=== PATIENT | male | born 1955 | race African-American/Black ===

== ENCOUNTER 2020-09-26 10:28 | Outpatient (REF) | payer MEDICARE, MEDICAID, SELFPAY ==
--- NOTE | 2020-09-26 10:40 | XR_ITS ---
EXAMINATION: XR FOOT, RIGHT CLINICAL INFORMATION: Pain over mid arch right foot COMPARISON: None TECHNIQUE: Right foot is imaged in 3 views, nonweightbearing. FINDINGS: There is no acute or healing fracture, dislocation, or destructive process. Bony mineralization appears normal. There is decreased arch/pes planus. The retrocalcaneal recess is preserved. No significant calcaneal spurring. The subtalar joint is not well visualized. There is a prominent hallux valgus of approximately 44 degrees and medial osseous bunion first metatarsal head. XR/XR foot RT min 3V IMPRESSION: Pes planus. Prominent hallux valgus and osseous bunion.
== END 2020-09-26 10:29 | disposition home or self-care (01) ==
LOC: HO.XRAY 10:28
PROVIDERS: PCP Family Medicine; Visit Provider Family Medicine
DX: M79.671 Pain in right foot (principal)
CPT/HCPCS: 73630

== ENCOUNTER 2021-07-05 10:54 | Emergency (ER) | payer MEDICARE, OTHER, SELFPAY ==
[2021-07-05 10:58] VITALS: BP 140/94; PULSE 73; RESP 18; TEMP 36.9; O2SAT 97; BMI 27.1
--- NOTE | 2021-07-05 12:38 | ED.NECK ---
HPI - Neck Pain/Injury General Chief Complaint: Extremity Problem Stated Complaint: rt shoulder & neck pain Time Seen by Provider: 07/05/21 12:28 Source: patient and old records reviewed Mode of arrival: ambulatory Limitations: no limitations History of Present Illness HPI Narrative: Patient presents with 2 weeks worth of right-sided trapezius and anterior shoulder pain. No injuries or precipitating factors that he is aware of. He denies ever having pain or issues in this area before. 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 He has been taking some [id number] medications which help a little but have not made it go away. He has a PCP and takes medication for hypertension and cholesterol. No significant history of arthritis for the other musculoskeletal issues Severity: moderate Related Data Previous Rx's Medication Instructions Recorded cyclobenzaprine 10 mg tablet 10 mg PO TID #20 tab 07/05/21 ibuprofen 800 mg tablet 800 mg PO TID #30 tab 07/05/21 Allergies Allergy/AdvReac Type Severity Reaction Status Date / Time No Known Allergies Allergy Unverified 07/14/20 16:56 getachew inhibitors Allergy Unknown cough Uncoded 04/04/18 00:00 Review of Systems Constitutional: Constitutional: Denies body ache(s) and Denies fever(s) Cardiovascular: Cardiovascular: Denies chest pain and Denies dyspnea Respiratory: Respiratory: Denies cough and Denies dyspnea Gastrointestinal: Comments: No abdominal pain Musculoskeletal: Comments: Slightly decreased range of motion right shoulder Neurologic: Comments: No weakness numbness or paresthesias [facility] Past Medical History [facility] Narrative: Noncontributory Medical History (Updated 07/05/21 @ 12:45 by Fareed Greenwood MD) HIV disease Hypertension Stroke Social History Social History Advance Directives: Yes Advance Directives Information Provided: Yes Advance Directives on File: No Physical Exam Vital Signs: Vital Signs: Last Vital Signs Temp 98.4 F 07/05/21 10:58 Pulse 73 07/05/21 10:58 Resp 18 07/05/21 10:58 BP 140/94 H 07/05/21 10:58 Pulse Ox 97 07/05/21 10:58 Body Mass Index 27.1 Const: General: cooperative, healthy appearing, comfortable, no acute distress and well developed Neck: Other: Right-sided trapezius spasm and mild tenderness to palpation without significant deformity. No midline C-spine tenderness. Chest: Other: Clear and equal bilaterally Cardio: Other: Regular rate and rhythm without murmurs rubs or gallops GI: Other: Abdomen nontender Back/Spine/Pelvis: Other: No T-spine tenderness Skin: Other: No rash or skin changes in the area of pain Neuro: Other: [employer] equal bilaterally. No objective or subjective weakness. Ambulates without difficulty Extrem: Other: Mild tenderness to the anterior medial shoulder. Mild crepitus with range of motion. No significant pain with passive range of motion. No tenderness over biceps tendon Course Course Course Narrative: Musculoskeletal trapezius pain without evidence of significant abnormality or radiculopathy. Will treat with ibuprofen and Flexeril. Follow up with PCP for physical therapy referral Discharge Plan Discharge Clinical Impression: Trapezius muscle spasm Patient Disposition: Home, Self-Care Instructions: Muscle Spasm (ED) Prescriptions: New ibuprofen 800 mg tablet 800 mg PO TID Qty: 30 RF: 0 cyclobenzaprine 10 mg tablet 10 mg PO TID Qty: 20 RF: 0 Referrals: Italia Lynn MD [Physician] - 2 days
== END 2021-07-05 13:01 | disposition home or self-care (01) ==
PROVIDERS: Emergency Provider Emergency Medicine; PCP Family Medicine
DX: M62.838 Other muscle spasm (principal); Z79.899 Other long term (current) drug therapy
CPT/HCPCS: 99283

== ENCOUNTER 2022-01-25 16:26 | Outpatient (REF) | payer MEDICARE, OTHER, SELFPAY ==
--- NOTE | ~2022-01-25 | XR_ITS ---
EXAMINATION: XR SHOULDER, RIGHT CLINICAL INFORMATION: Pain right shoulder. COMPARISON: X-rays of the right shoulder January 2009 . TECHNIQUE: AP external rotation, Grashey, scapular Y, and axillary views of the right shoulder. FINDINGS: There are small marginal osteophytes along the inferior aspect of the humeral head. The acromioclavicular joint is normal. The surrounding bone and soft tissues are unremarkable XR/XR shoulder RT min 2V IMPRESSION: Mild arthrosis of the glenohumeral joint.
== END 2022-01-25 16:27 | disposition home or self-care (01) ==
LOC: HO.XRAY 16:26
PROVIDERS: Absent Provider Family Medicine; PCP Family Medicine; Visit Provider Internal Medicine
DX: M25.511 Pain in right shoulder (principal)
CPT/HCPCS: 73030

== ENCOUNTER 2022-11-16 10:06 | Day surgery (SDC) | payer MEDICARE, OTHER, SELFPAY ==
[2022-11-16 10:19] VITALS: BMI 27.8
[2022-11-16] MEDS: Lactated Ringers 1,000 ML 100 ML IVCONT (10:29)
--- NOTE | 2022-11-16 10:45 | P.CONAN_ITS ---
[facility] Past Medical History Medical History HIV disease Hyperlipidemia Hypertension Pericarditis Stroke Family History Family history of problems with anesthesia: No Surgical History Surgical History History of repair of left hip joint History of surgical removal of ganglion cyst History of Problems with Anesthesia: No Social History Social History Patient Tobacco Use Status: Former Tobacco user Are you DNR?: No Advance Directives: No Advance Directives Information Provided: Yes Nutrition Risks: No Nutritional Risk Meds Allergies Allergy/AdvReac Type Severity Reaction Status Date / Time getachew inhibitors Allergy Unknown cough Uncoded 11/16/22 10:21 Active Medications: Current Medications Lactated Ringer's (Lr) 1,000 mls @ 100 mls/hr IVCONT .Q10H FLOR Last Admin: 11/16/22 10:29 Dose: 100 mls/hr Sodium Biphosphate/Sodium Phosphate (Sodium Phosphate,Bartholomew-Dibasic 133 Ml Enema) 133 ml HI ONCE PRN PRN Reason: Poor Colonoscopy Prep Results Home Medications Medication Instructions Recorded Confirmed Last Taken Type acetaminophen 650 mg 2 tab PO Q8H PRN Pain 11/15/22 11/16/22 Unknown History tablet,extended release aspirin 325 mg tablet,delayed 1 tab PO DAILY 11/15/22 11/16/22 Unknown History release atorvastatin 20 mg tablet 1 tab PO DAILY 11/15/22 11/16/22 Unknown History bictegravir 50 mg-emtricitabine 1 tab PO BEDTIME 11/15/22 11/16/22 Unknown History 200 mg-tenofovir alafenam 25 mg tablet (Biktarvy) chlorthalidone 25 mg tablet 1 tab PO DAILY 11/15/22 11/16/22 Unknown History hydrochlorothiazide 25 mg tablet 1 tab PO DAILY 11/15/22 11/16/22 Unknown History losartan 50 mg tablet 1 tab PO DAILY 11/15/22 11/16/22 Unknown History Exam Exam Date and Time: November 16, 2022 1045 Height,Weight and Vital Signs: Height 6 ft Weight 92.986 kg Airway Mallampati Class: II TM Dist: >3cm Partial: Upper Loose/Missing/Broken Teeth: No Heart: rrrr Lungs: cta Assessment and Plan Final Anesthetic Review Family History of Problems with Anesthesia: No History of Problems with Anesthesia: No NPO: Yes ASA Class: II Final Preanesthetic Review: No Changes in Pt Med Stat, Meds/Allgs Chart Reviewed, Consent Obtained/Reviewed and Anes Risks/Benef Reviewed Patient Risk: Low Procedure Risk: Low Anesthetic Plan Anesthetic Plan: MAC: and Agree w/ Assess. and Plan Disposition: Standard PACU
[2022-11-16 11:06] VITALS: BP 134/80; PULSE 85; RESP 18; TEMP 36.7; O2SAT 99
[2022-11-16 12:30] VITALS: BP 119/77; PULSE 80; RESP 18; TEMP 36.7; O2SAT 97
--- NOTE | 2022-11-16 12:30 | PM.OP ---
Brief Operative Note Date of Service: 11/16/22 Pre-op diagnosis: Screening Post-op diagnosis: other (Colon polyps) Procedure: Colonoscopy to the cecum with bx/removal of polyps Surgeon: Ignacio Iglesias Anesthesia: MAC Was an Septic Tank Installer used for this Procedure?: No Estimated blood loss (mL): 2.0 Pathology: other (A. Colon polyp at 60cm B. Colon polyp at 40cm ) Condition: stable Disposition: PACU
[2022-11-16 12:46] VITALS: BP 121/84; PULSE 85; RESP 18; TEMP 36.1; O2SAT 98
--- NOTE | 2022-11-17 00:36 | OP_ITS ---
SURGEON: Ignacio Iglesias MD INDICATIONS: The patient presents for evaluation of colon cancer screening. Full consent has been obtained from him for this, including risks of bleeding and perforation. PREOPERATIVE DIAGNOSIS: Colon cancer screening. POSTOPERATIVE DIAGNOSIS: PROCEDURE PERFORMED: Colonoscopy to the cecum with biopsy and removal of polyps. ESTIMATED BLOOD LOSS: COMPLICATIONS: ANESTHESIA: Monitored anesthesia care. ASSISTANTS: SPECIMENS: POSTOPERATIVE DIAGNOSES: Colon cancer screening, small colon polyps, diverticulosis, internal hemorrhoids. DESCRIPTION OF PROCEDURE: The patient was placed in the left lateral decubitus position. The digital rectal exam revealed no abnormalities. The Olympus video pediatric colonoscope was entered into the rectum and advanced easily to the cecum. Once in the cecum, I did identify normal-appearing cecal pouch with appendiceal orifice and a normal appearing ileocecal valve. The entire cecum and ileocecal valve appeared normal. There was transillumination of light deep in the right lower quadrant. Scope was slowly withdrawn, assessing all mucosal surfaces carefully. Preparation was excellent. At 60 cm and at 40 cm were flat less than 5 mm polyps, which appeared to be grossly adenomatous. These were both biopsied and completely removed with a cold biopsy forceps. I did not visualize any other polyps, colitis, or angiodysplasia. There was a mild amount of sigmoid diverticulosis. In the rectum, the scope was retroflexed visualizing internal hemorrhoids, but no other pathology. The rectal mucosa appeared normal. Scope was straightened and withdrawn from the patient. He tolerated the procedure well and was returned to recovery area in stable condition. IMPRESSION: 1. Small colon polyps. 2. Diverticulosis. 3. Internal hemorrhoids. PLAN: The results of the biopsy will be checked. If these are tubular adenoma, then recommend a followup colonoscopy in 5 years. If they are both hyperplastic, then he would not need any further screening colonoscopies as he will be just about 78, 10 years from now, when that will be due. He will see me on a p.r.n. basis. He was advised to resume his aspirin in 48 hours as his last dose was 48 hours ago. MD LOC Ly[place]/ALEXIS / [id number] MTDNidia
== END 2022-11-16 13:30 | disposition home or self-care (01) ==
PROVIDERS: PCP Family Medicine; Visit Provider Internal Medicine
PROC: 0DJD8ZZ Inspection of Lower Intestinal Tract, Via Natural or Artificial Opening Endoscopic (ICD-10-PCS; CPT 45378; principal; 2022-11-16 11:40)
DX: Z12.11 Encounter for screening for malignant neoplasm of colon (principal); D12.4 Benign neoplasm of descending colon; D12.5 Benign neoplasm of sigmoid colon; K57.30 Diverticulosis of large intestine without perforation or abscess without bleeding; K64.8 Other hemorrhoids; B20 Human immunodeficiency virus [HIV] disease; E78.5 Hyperlipidemia, unspecified; I69.319 Unspecified symptoms and signs involving cognitive functions following cerebral infarction; I10 Essential (primary) hypertension; Z79.82 Long term (current) use of aspirin; Z79.899 Other long term (current) drug therapy; Z88.8 Allergy status to other drugs, medicaments and biological substances; Z87.891 Personal history of nicotine dependence
CPT/HCPCS: 45380; 88305

== ENCOUNTER 2023-02-05 13:47 | Emergency (ER) | payer MEDICARE, OTHER, SELFPAY ==
--- NOTE | ~2023-02-05 | XR_ITS ---
EXAMINATION: XR KNEE, RIGHT CLINICAL INFORMATION: Pain and swelling COMPARISON: None available. TECHNIQUE: Four views of the right knee. FINDINGS: There is mild reduction in medial and patellar femoral compartment joint space without bony erosive changes. There is minimal spurring along the medial compartment and superior patellar. There is mild suprapatellar joint effusion. No visible acute fracture, dislocation or loose body seen. The soft tissues are normal. XR/XR knee RT 4V IMPRESSION: Mild degenerative changes medial and patellofemoral compartment. There is mild suprapatellar joint effusion.
--- NOTE | 2023-02-05 13:53 | ED.LOWEXIN ---
HPI - Extremity Injury (Lower) General Chief Complaint: Extremity Problem <BUSHRA Mann - Last Filed: 02/05/23 13:56> Stated Complaint: R knee pain <BUSHRA Mann - Last Filed: 02/05/23 13:56> Time Seen by Provider: 02/05/23 14:09 <BUSHRA Mann - Last Filed: 02/05/23 13:56> History of Present Illness HPI Narrative: patient complains of right knee pain and swelling after carrying something up stairs and feeling a pop 3 days ago, since then he has had pain that keeps him up at night and some swelling, he did not fall he has no other injury or complaint, denies any redness or fever <BUSHRA Vazquez - Last Filed: 02/05/23 15:14> Related Data Home Medications: Home Medications Medication Instructions Recorded Confirmed acetaminophen 650 mg 2 tab PO Q8H PRN Pain 11/15/22 11/16/22 tablet,extended release aspirin 325 mg tablet,delayed 1 tab PO DAILY 11/15/22 11/16/22 release atorvastatin 20 mg tablet 1 tab PO DAILY 11/15/22 11/16/22 bictegravir 50 mg-emtricitabine 1 tab PO BEDTIME 11/15/22 11/16/22 200 mg-tenofovir alafenam 25 mg tablet (Biktarvy) chlorthalidone 25 mg tablet 1 tab PO DAILY 11/15/22 11/16/22 hydrochlorothiazide 25 mg tablet 1 tab PO DAILY 11/15/22 11/16/22 losartan 50 mg tablet 1 tab PO DAILY 11/15/22 11/16/22 Previous Rx's Medication Instructions Recorded acetaminophen 500 mg tablet 1,000 mg PO QID PRN pain #30 tabs 02/05/23 naproxen 500 mg tablet (Naprosyn) 500 mg PO BID PRN pain #10 tabs 02/05/23 oxycodone 5 mg tablet 5 mg PO Q6H PRN pain #10 tabs 02/05/23 <BUSHRA Mann - Last Filed: 02/05/23 13:56> Allergies/Adverse Reactions: Allergies Allergy/AdvReac Type Severity Reaction Status Date / Time getachew inhibitors Allergy Unknown cough Uncoded 11/16/22 10:21 <BUSHRA Mann - Last Filed: 02/05/23 13:56> [facility] Past Medical History Source: nursing notes reviewed <BUSHRA Vazquez - Last Filed: 02/05/23 15:14> Medical History: Medical History (Updated 02/05/23 @ 15:07 by BUSHRA Vazquez) HIV disease Hyperlipidemia Hypertension Pericarditis Stroke <BUSHRA Mann - Last Filed: 02/05/23 13:56> Surgical History: Surgical History History of repair of left hip joint History of surgical removal of ganglion cyst <BUSHRA Mann - Last Filed: 02/05/23 13:56> Social History Social History: Social History Patient Tobacco Use Status: Former Tobacco user Advance Directives: No Advance Directives Information Provided: Yes <BUSHRA Mann - Last Filed: 02/05/23 13:56> Physical Exam Vital Signs: Vital Signs: Last Vital Signs Temp 98.1 F 02/05/23 13:54 Pulse 65 02/05/23 13:54 Resp 18 02/05/23 13:54 BP 139/95 H 02/05/23 13:54 Pulse Ox 98 02/05/23 13:54 O2 Del Method Room Air 02/05/23 13:54 BMI result Body Mass Index 27.8 <BUSHRA Mann - Last Filed: 02/05/23 13:56> Vital Signs: Last Vital Signs Temp 98.1 F 02/05/23 13:54 Pulse 65 02/05/23 13:54 Resp 18 02/05/23 13:54 BP 139/95 H 02/05/23 13:54 Pulse Ox 98 02/05/23 13:54 O2 Del Method Room Air 02/05/23 13:54 BMI result Body Mass Index 27.8 <BUSHRA Vazquez - Last Filed: 02/05/23 15:14> general appearance is no distress Head is normocephalic atraumatic Neck is supple Respiratory no distress The back full range of motion Extremities the right knee has some mild suprapatellar swelling, there is diffuse mild tenderness, he can extend 180 flex to about 90, can do straight leg raise, no ligamentous laxity, no redness no warmth Other extremities normal <BUSHRA Vazquez - Last Filed: 02/05/23 15:14> Course Course Course Narrative: RME--67yo M w/PMHx HIV, HTN, HLD, CVA, Pericarditis, c/o right knee pain x2 days s/p carrying things up the stairs. denies twisting injury/trauma or fall +right knee with mild swelling, +ttp >medial aspect. NV intact distally XR ordered <BUSHRA Mann Last Filed: 02/05/23 13:56> RME--67yo M w/PMHx HIV, HTN, HLD, CVA, Pericarditis, c/o right knee pain x2 days s/p carrying things up the stairs. denies twisting injury/trauma or fall +right knee with mild swelling, +ttp >medial aspect. NV intact distally XR ordered X-ray show degenerative changes in medial and patellofemoral compartments, there is a mild suprapatellar joint effusion On exam there was no sign of septic joint there is no redness no warmth, it extends to 180 patient can bear weight Patient with painful left knee with recent injury as well as osteoarthritis is referred to the orthopedist and prescribed analgesics <BUSHRA Vazquez Last Filed: 02/05/23 15:14> Discharge Plan Discharge Clinical Impression: Osteoarthritis of right knee <BUSHRA Mann Last Filed: 02/05/23 13:56> Patient Disposition: Home, Self-Care <BUSHRA Mann Last Filed: 02/05/23 13:56> Additional Instructions: x-ray showed some arthritis in the knee which is the likely cause of the knee pain flare up Follow with orthopedist Return any time any worse condition or any concerns <BUSHRA Mann Last Filed: 02/05/23 13:56> Prescriptions: New acetaminophen 500 mg tablet 1,000 mg PO QID PRN (Reason: pain) Qty: 30 0RF oxycodone 5 mg tablet 5 mg PO Q6H PRN (Reason: pain) Qty: 10 0RF Rx Instructions: Partial Fill upon patient request. naproxen [Naprosyn] 500 mg tablet 500 mg PO BID PRN (Reason: pain) Qty: 10 0RF No Action losartan 50 mg tablet 1 tab PO DAILY atorvastatin 20 mg tablet 1 tab PO DAILY chlorthalidone 25 mg tablet 1 tab PO DAILY acetaminophen 650 mg tablet extended release 2 tab PO Q8H PRN (Reason: Pain) aspirin 325 mg tablet,delayed release (DR/EC) 1 tab PO DAILY hydrochlorothiazide 25 mg tablet 1 tab PO DAILY Biktarvy 50-200-25 mg tablet 1 tab PO BEDTIME <BUSHRA Mann - Last Filed: 02/05/23 13:56> Referrals: Ildefonso Benjamin MD [Physician] - ( right knee osteoarthritis) <BUSHRA Mann - Last Filed: 02/05/23 13:56>
[2023-02-05 13:54] VITALS: BP 139/95; PULSE 65; RESP 18; TEMP 36.7; O2SAT 98; BMI 27.8
== END 2023-02-05 15:16 | disposition home or self-care (01) ==
PROVIDERS: Emergency Provider Emergency Medicine; PCP Family Medicine
DX: M17.11 Unilateral primary osteoarthritis, right knee (principal); I10 Essential (primary) hypertension; Z86.73 Personal history of transient ischemic attack (TIA), and cerebral infarction without residual deficits
CPT/HCPCS: 73564; 99282; 99283

== ENCOUNTER 2023-07-26 02:42 | Inpatient (IN) | payer MEDICARE, OTHER, SELFPAY ==
[2023-07-26] VITALS (8 sets, daily range): BP systolic 115–160; BP diastolic 81–95; PULSE 65–80; RESP 14–18; TEMP 36.6–37; O2SAT 96–100; BMI 29.1
--- NOTE | ~2023-07-26 | MR_ITS ---
EXAMINATION: MR BRAIN WITHOUT CONTRAST CLINICAL INFORMATION: Rule out CVA. Right hand numbness. COMPARISON: Head CT 07/26/2023. TECHNIQUE: Multiplanar, multisequence imaging of the brain was performed without intravenous contrast. FINDINGS: Allowing for motion artifact no definite restricted diffusion is seen to suggest acute infarction. Nonspecific foci of T2/FLAIR hyperintensity are seen within the bilateral cerebral white matter which has progressed compared with 2013 there is a mild degree of brain parenchymal volume loss. No hydrocephalus is seen. The major arterial flow voids appear preserved at the skull base. There is paranasal sinus mucosal thickening with some aerated secretions noted in the maxillary sinuses. MR/MR head/brain wo con IMPRESSION: Motion degraded exam. No definite acute intracranial abnormality identified. Nonspecific foci of T2/FLAIR hyperintensity seen in the cerebral white matter which has progressed compared with 2013.
--- NOTE | ~2023-07-26 | CT_ITS ---
EXAMINATION: CT ANGIOGRAM NECK AND HEAD CLINICAL INFORMATION: Mild dysarthria, right arm paresthesia, history of CVA COMPARISON: None. TECHNIQUE: Initial noncontrast head CT was performed. Test bolus sequences followed by intravenous administration 70 mL of Omnipaque 350. Helical imaging was performed in the axial plane from the thoracic inlet to the skull vertex. Delayed postcontrast imaging of the head was also performed. The data was processed at the geospatial technologist's workstation for generation of MIP sequences. Angled MIPs and volume rendered reformatted images were also generated at an offline 3D workstation. Stenoses are assessed in accordance with NASCET criteria unless otherwise indicated. DOSE LOWERING TECHNIQUES: This CT examination was performed using dose optimization techniques as appropriate, variously including the following: - Automated exposure control - Adjustment of mA and/or kV according to patient size (this includes techniques or standardized protocols for targeted exams were dose is matched to indication/reason for exam; i.e. extremities or head) - Use of iterative reconstruction technique DLP: 2397 mGy-cm FINDINGS: Neck CTA: Prominent ascending aorta measures approximately 4.0 cm diameter. There is a classic 3 vessel branching pattern of the aortic arch. Normal appearance of the visualized aortic arch and proximal branches. No evidence of stenosis at the branch origins. Both vertebral arteries are widely patent throughout their extracranial cervical course. There is mild calcification at the left common carotid artery bifurcation without significant stenosis. Otherwise normal appearance of the common and internal carotid arteries without focal stenosis. Brain CTA: Normal appearance of the intradural vertebral arteries. Normal appearance of the basilar and superior cerebellar arteries. Normally opacified posterior cerebral arteries bilaterally. Normal appearance of the intradural internal carotid arteries without focal stenosis. Normal appearance of the anterior cerebral and middle cerebral arteries without focal occlusion or stenosis. Normal anterior communicating artery. Normal arborization of the middle cerebral arteries. CT Head: No intracranial mass, hemorrhage, extra-axial collection, or midline shift. There is a suspected region of chronic infarct in the left basal ganglia and periventricular white matter, with mild ex vacuo dilatation of the adjacent lateral ventricle. There is mild periventricular white matter hypoattenuation consistent with chronic small vessel ischemic disease. Mild volume loss is noted. The watson-white matter differentiation is preserved. No pathologic intra-axial enhancement or regional oligemia. No hydrocephalus. Mild mucosal thickening of the maxillary sinuses and sphenoid sinuses. The mastoid air cells remain well aerated. CT Neck: The thyroid gland and remaining cervical soft tissues are normal in appearance. Third degenerative changes throughout the cervical spine with disc space narrowing and endplate osteophyte formation. Upper Chest: No abnormalities in the visualized lung apices or upper mediastinum. CT/CT angio head neck IMPRESSION: 1. No acute intracranial findings. Chronic appearing infarct in the left basal ganglia and periventricular white matter. 2. No hemodynamically significant stenosis in the major arteries of the neck. No large vessel occlusion or significant stenosis in the intracranial circulation.
[2023-07-26 02:59] LABS: Glucose, Whole Blood 131 mg/dL (60-115)
--- NOTE | 2023-07-26 02:59 | ED_ITS ---
HPI - Neuro Symptoms/Deficit General Chief Complaint: Stroke Stated Complaint: Stroke Time Seen by Provider: 07/26/23 02:47 Source: patient Mode of arrival: ambulatory Limitations: no limitations History of Present Illness HPI Narrative: Patient comes to the emergency room complaining of waking up with right arm numbness and tingling and dysarthria. Patient states that he also feels that both of his legs are weak. Patient states that he went to sleep 5-1/2 hours ago, woke up with symptoms approximately 1-1/2 hours ago. Patient was hoping his symptoms would go away, since he has history of CVA in 2014, in which symptoms were similar, patient decided to come to the emergency room. Overall, onset of symptoms 5-1/2 hours. Patient also complaining of severe headache. Patient states he has had a headache for several days now. Patient states he thinks he has influenza Related Data Home Medications Medication Instructions Recorded Confirmed acetaminophen 650 mg 2 tab PO Q8H PRN Pain 11/15/22 11/16/22 tablet,extended release aspirin 325 mg tablet,delayed 1 tab PO DAILY 11/15/22 11/16/22 release atorvastatin 20 mg tablet 1 tab PO DAILY 11/15/22 11/16/22 bictegravir 50 mg-emtricitabine 1 tab PO BEDTIME 11/15/22 11/16/22 200 mg-tenofovir alafenam 25 mg tablet (Biktarvy) chlorthalidone 25 mg tablet 1 tab PO DAILY 11/15/22 11/16/22 hydrochlorothiazide 25 mg tablet 1 tab PO DAILY 11/15/22 11/16/22 losartan 50 mg tablet 1 tab PO DAILY 11/15/22 11/16/22 Previous Rx's Medication Instructions Recorded acetaminophen 500 mg tablet 1,000 mg (2 x 500 mg) PO QID PRN 02/05/23 pain #30 tabs naproxen 500 mg tablet (Naprosyn) 500 mg PO BID PRN pain #10 tabs 02/05/23 oxycodone 5 mg tablet 5 mg PO Q6H PRN pain #10 tabs 02/05/23 Allergies Allergy/AdvReac Type Severity Reaction Status Date / Time getachew inhibitors Allergy Unknown cough Uncoded 11/16/22 10:21 Review of Systems 2 Review of Systems: Constitutional : No Weight loss, No Fever, No Chills, No Night Sweats, No Fatigue, No Malaise ENT/Mouth : No Hearing loss, No Ear Pain, No Nasal Congestion, No Sinus Pain, No Hoarseness, No sore throat, No Rhinorrhea, No Swallowing Difficulty Eyes: No Eye Pain, No Swelling, No Redness, No Foreign Body, No Discharge, No Vision Changes Cardiovascular : No Chest Pain, No SOB, No Dyspnea on Exertion, No Orthopnea, No Edema, No Palpitations Respiratory : No Cough, No Sputum, No Wheezing, No Smoke Exposure, No Dyspnea Gastrointestinal : No Nausea, No Vomiting, No Diarrhea, No Constipation, No abdominal Pain, No Hematochezia, No Melena Genitourinary : no irregular bleeding, No Dysuria, No Urinary Frequency, No Hematuria, No Urinary Incontinence, No Urgency, No Flank Pain, No Urinary Flow Changes, No Hesitancy Musculoskeletal : No joint pain, No Myalgias, No Joint Swelling Skin : No Skin Lesions, No rash Neuro : Complaining of right arm paresthesia, bilateral leg weakness, mild dysarthria, patient states he thinks his speech is off, complaining of headache for several days Psych : No Anxiety/Panic, No Depression, No SI/HI/AH/VH, No Social Issues, Heme/Lymph: No Bruising, No Bleeding,No Lymphadenopathy Endocrine : No Polyuria, No Polydipsia, No Temperature Intolerance PMFSH Past Medical History Medical History Hyperlipidemia Pericarditis HIV disease Stroke Hypertension Surgical History History of surgical removal of ganglion cyst History of repair of left hip joint Social History Social History Alcohol intake: former Patient Tobacco Use Status: Former Tobacco user Smoked in Last 30 Days: No Use of substances other than those prescribed or required for medical reasons: No Advance Directives: No Advance Directives Information Provided: Yes Physical Exam 2 Vital Signs: Vital Signs: Last Vital Signs Temp 98.6 F 07/26/23 03:24 Pulse 71 07/26/23 03:24 Resp 17 07/26/23 03:24 BP 137/90 H 07/26/23 03:24 Pulse Ox 98 07/26/23 03:24 O2 Del Method Room Air 07/26/23 03:24 BMI result Body Mass Index 29.1 Const: Other: Appearance: Alert. Oriented X3. No acute distress. Eyes: Pupils equal, round and reactive to light. ENT: Pharynx normal. Neck: Normal inspection. Neck supple. No lymph nodes noted. No crepitus CVS: Normal heart rate and rhythm. Pulses normal. Normal S1 and S2 Respiratory: No respiratory distress. Breath sounds normal. No Wheezing. No rales Abdomen: Soft and nontender. No rigidity. No distention. Skin: Skin warm and dry. Normal skin color. Normal skin turgor. Extremities: No lower extremity edema. No Lacerations. No Rash Neuro: Oriented X 3. No motor deficit. No sensory deficit. Moving all extremities. Speech sounds normal but patient thinks it is off. CN 2 through 12 grossly intact Psych: calm, cooperative, normal affect Course Course Course Narrative: -patient's NIH score is 0. -patient thinks his speech is a bit slurred , but when the patient speaks to us, his speech sounds normal. Patient has normal strength in all extremities -patient is outside of the window of treatment -patient given medication for the headache, it is possible that patient may be experiencing symptoms secondary to the headache. Intracranial bleed not suspected at this time. -all labs and imaging pending Medications Administered Discontinued Medications Generic Name Dose Route Start Last Admin Trade Name Freq PRN Reason Stop Dose Admin Diphenhydramine HCl 25 mg 07/26/23 03:05 07/26/23 03:33 Diphenhydramine Hcl 50 Mg/Ml Vial IVPUSH 07/26/23 03:06 25 mg ONCE ONE Administration Iohexol 70 ml 07/26/23 03:58 07/26/23 03:58 Iohexol 350 Mg/Ml 100 Ml Infus..Btl IV 07/26/23 03:59 70 ml ONCE ONE Administration Metoclopramide HCl 10 mg 07/26/23 03:05 07/26/23 03:32 Metoclopramide Hcl 10 Mg/2 Ml Vial IVPUSH 07/26/23 03:06 10 mg ONCE ONE Administration Morphine Sulfate 4 mg 07/26/23 03:05 07/26/23 03:33 Morphine Sulfate 4 Mg/Ml Cartridge IVPUSH 07/26/23 03:06 4 mg ONCE ONE Administration Protocol Medical Decision Making Medical Decision Making MDM Narrative: -my interpretation of labs: Hematology at baseline, chemistry normal --my interpretation of CTA: No obvious thrombus -currently, the blood pressure 125 systolic. Patient states that he feels better, the numbness is subsiding. However, patient still feels that his speech is not back to normal. -discussed the patient with Dr. Mckee, pt being admitted for TIA Differential Diagnosis Differential Diagnoses: The differential diagnosis associated with the presentation includes (TIA, CVA, paresthesia, hypertension) Admission/Observation Consideration of admission/observation: Escalation of care including admission/observation considered Consult Healthcare Provider Management of the patient was discussed with: Hospitalist Lab Data [facility] Lab Attestation statement: I reviewed the patient's lab results. 07/26/23 03:09 07/26/23 03:09 Labs: Lab Results 07/26/23 07/26/23 07/26/23 Range/Units 02:52 02:53 03:09 WBC 7.0 (4.8-10.8) X10*3/uL RBC 4.56 L (4.60-5.80) X10*6/uL Hgb 14.5 (14.0-18.0) g/dl Hct 41.5 L (42.0-52.0) % MCV 91.0 (80.0-98.0) fL MCH 31.8 (27.0-33.0) pg MCHC 34.9 (31.0-36.0) g/dl RDW 14.2 (11.0-16.0) % Plt Count 237 (160-400) X10*3/uL MPV 8.9 L (9.4-12.4) fL Immature Gran % (Auto) 0.1 (0.0-0.4) % Neut % (Auto) 43.5 L (45-73) % Lymph % (Auto) 42.9 H (20-40) % [place] % (Auto) 9.9 (2-11) % Eos % (Auto) 2.6 (0-4) % Baso % (Auto) 1.0 (0-2) % Lymph # (Auto) 3.0 (1.2-4.9) X10*3/uL [place] # (Auto) 0.7 (0.1-1.2) X10*3/uL Eos # (Auto) 0.2 (0.0-0.4) X10*3/uL Baso # (Auto) 0.1 (0.0-0.2) X10*3/uL Abs Immat Gran (auto) 0.01 (0.00-0.03) X10*3/uL Absolute Neuts (auto) 3.0 (2.0-8.3) x10*3/uL Absolute Nucleated RBC 0.000 (0.0-0.012) X10*3/uL Nucleated RBC % (auto) 0.0 (0.0-0.2) /100WBC Whole Blood PT 12.0 (11.1-13.5) sec Whole Blood INR 1.0 (0.9-1.1) Sodium 141 (135-145) mmol/L Potassium 3.6 (3.3-5.1) mmol/L Chloride 103 (96-108) mmol/L Carbon Dioxide 23 (22-29) mmol/L Anion Gap 19 (12-20) BUN 21 H (9-16) mg/dL Creatinine 1.33 (0.5-1.4) mg/dL Estim Creat Clear Calc 63.4 Estimated GFR 53 POC Glucose 131 H (60-115) mg/dL Random Glucose 136 H (60-115) mg/dL Calcium 9.7 (8.4-10.2) mg/dL Total Bilirubin 0.4 (0.0-1.0) mg/dL Direct Bilirubin 0.2 (0.0-0.5) mg/dL AST 25 (5-37) U/L ALT 31 (0-40) U/L Alkaline Phosphatase 58 (39-117) U/L Troponin I High Sens < 2.7 (<3.5-35.0) ng/L Total Protein 7.7 (6.5-8.0) g/dL Albumin 4.2 (3.5-5.0) g/dL COVID-19 ([facility]) Negative (Negative) COVID-19 Clin Com See Note Influenza Type A (DARCY) Negative (Negative) Influenza Type B (DARCY) Negative (Negative) Influenza A & B Note See Note Independent Interpretation I performed an independent interpretation of an: CT Scan Radiology Impression Discussion of test interpretation with radiology: I have reviewed the radiologist's reading. Radiologist Impression: FINDINGS: Neck CTA: Prominent ascending aorta measures approximately 4.0 cm diameter. There is a classic 3 vessel branching pattern of the aortic arch. Normal appearance of the visualized aortic arch and proximal branches. No evidence of stenosis at the branch origins. Both vertebral arteries are widely patent throughout their extracranial cervical course. There is mild calcification at the left common carotid artery bifurcation without significant stenosis. Otherwise normal appearance of the common and internal carotid arteries without focal stenosis. Brain CTA: Normal appearance of the intradural vertebral arteries. Normal appearance of the basilar and superior cerebellar arteries. Normally opacified posterior cerebral arteries bilaterally. Normal appearance of the intradural internal carotid arteries without focal stenosis. Normal appearance of the anterior cerebral and middle cerebral arteries without focal occlusion or stenosis. Normal anterior communicating artery. Normal arborization of the middle cerebral arteries. CT Head: No intracranial mass, hemorrhage, extra-axial collection, or midline shift. There is a suspected region of chronic infarct in the left basal ganglia and periventricular white matter, with mild ex vacuo dilatation of the adjacent lateral ventricle. There is mild periventricular white matter hypoattenuation consistent with chronic small vessel ischemic disease. Mild volume loss is noted. The watson-white matter differentiation is preserved. No pathologic intra-axial enhancement or regional oligemia. No hydrocephalus. Mild mucosal thickening of the maxillary sinuses and sphenoid sinuses. The mastoid air cells remain well aerated. CT Neck: The thyroid gland and remaining cervical soft tissues are normal in appearance. Third degenerative changes throughout the cervical spine with disc space narrowing and endplate osteophyte formation. Upper Chest: No abnormalities in the visualized lung apices or upper mediastinum. CT/CT angio head neck IMPRESSION: 1. No acute intracranial findings. Chronic appearing infarct in the left basal ganglia and periventricular white matter. 2. No hemodynamically significant stenosis in the major arteries of the neck. No large vessel occlusion or significant stenosis in the intracranial circulation. NIH Stroke Scale Internal: Initial- Upon Arrival Level of Consciousness: Alert Level of Consciousness Questions: Answers both questions correctly Level of Consciousness Commands: Performs both tasks correctly Best Gaze: Normal Visual: No visual loss Facial Palsy: Normal Motor Arm (Right): No drift Motor Arm (Left): No drift Motor Leg (Right): No drift Motor Leg (Left): No drift Limb Ataxia: Absent Sensory: Normal Best Language: No aphasia Dysarthia: Normal Extinction and Inattention: No abnormality Score: 0 Critical Care Time Critical Care Time Critical Care Time: Yes Total Critical Care Time: 60 Attestation: I have personally provided critical care time. Time includes review of lab data, radiology results, discussion with consultants, and monitoring for potential decompensation. Intervention performed as documented. Discharge Plan Discharge Clinical Impression: Transient cerebral ischemia Patient Disposition: Admitted As Inpatient Prescriptions: No Action losartan 50 mg tablet 1 tab PO DAILY atorvastatin 20 mg tablet 1 tab PO DAILY chlorthalidone 25 mg tablet 1 tab PO DAILY acetaminophen 650 mg tablet extended release 2 tab PO Q8H PRN (Reason: Pain) aspirin 325 mg tablet,delayed release (DR/EC) 1 tab PO DAILY hydrochlorothiazide 25 mg tablet 1 tab PO DAILY Biktarvy 50-200-25 mg tablet 1 tab PO BEDTIME acetaminophen 500 mg tablet 1,000 mg PO QID PRN (Reason: pain) Qty: 30 0RF oxycodone 5 mg tablet 5 mg PO Q6H PRN (Reason: pain) Qty: 10 0RF Rx Instructions: Partial Fill upon patient request. naproxen [Naprosyn] 500 mg tablet 500 mg PO BID PRN (Reason: pain) Qty: 10 0RF
--- NOTE | 2023-07-26 02:59 | ECG_ITS ---
Test Reason : STROKE Blood Pressure : / mmHG Vent. Rate : 072 BPM Atrial Rate : 072 BPM P-R Int : 200 ms QRS Dur : 096 ms QT Int : 386 ms P-R-T Axes : 039 -35 014 degrees QTc Int : 422 ms Normal sinus rhythm Left axis deviation Minimal voltage criteria for LVH, may be normal variant ( R in aVL ) Abnormal ECG When compared with ECG of 23-OCT-2018 15:24, No significant change was found Referred By: Charleen Wise Electronically Signed By:JOHN CESAR
[2023-07-26 03:14] LABS: MANUAL DIFF FLAG NO
[2023-07-26 03:17] LABS: Basophils Absolute Auto 0.1 X10*3/uL (0.0-0.2); Eosinophils Absolute Auto 0.2 X10*3/uL (0.0-0.4); Eosinophils Percent Auto 2.6 % (0-4); Hematocrit 41.5 % (42.0-52.0); Hemoglobin 14.5 g/dl (14.0-18.0); Imm Gran Abs Auto 0.01 X10*3/uL (0.00-0.03); Imm Gran Pct Auto 0.1 % (0.0-0.4); Lymphocytes Percent Auto 42.9 % (20-40); Mean Corpuscular HGB Conc 34.9 g/dl (31.0-36.0); Mean Corpuscular Hemoglobin 31.8 pg (27.0-33.0); Mean Platelet Volume 8.9 fL (9.4-12.4); Monocytes Absolute Auto 0.7 X10*3/uL (0.1-1.2); Monocytes Percent Auto 9.9 % (2-11); Neutrophils Percent Auto 43.5 % (45-73); Platelet Count 237 X10*3/uL (160-400); Red Blood Count 4.56 X10*6/uL (4.60-5.80); Red Cell Distribution Width 14.2 % (11.0-16.0)
--- OUTSIDE RECORDS SUMMARY | 2023-07-26 03:29 | XMS_ITS | Patient Health Record ---
Author Name Unknown Organization [facility] Address [address] [place] [address] Care Team Providers Care Medical Clerk Name Role Phone Ashlee Schilling MD Primary Care Provider Marni Ignacio Wheeler Unavailable [phone] ALLERGIES No Known Allergies RESULTS Component Value Reference Range Notes Pathology Reviewed date:12/04/2022 08:50:06 AM Interpretation: Performing Lab:[facility], [address] [place] [id number] Notes/Report: REASON FOR REFERRAL No Information MEDICATIONS Medication SIG (Take, Route, Frequency, Duration) Notes Start Date End Date Status Losartan Potassium 50 MG Oral for 30 Active Atorvastatin Calcium 20 MG Oral for 30 Active Biktarvy 50-200-25 MG Oral for 90 Active Aspirin EC 325 MG TAKE 1 TABLET BY VASQUEZ TH EVERY DAY Oral for 30 Active Multivitamin - 1 tablet Orally Once a day for 30 day(s) Active IMMUNIZATIONS Vaccine Route Administration Date Status Comme nts Influenza Unknown 08/28/2022 Administered SOCIAL HISTORY Tobacco Use: Social History Observation Description Date Details (start date - stop date) Former Smoker NA - NA Sex Assigned At : Social History Observation Description Sex Assigned At Unknown Tobacco Use/Smoking Question Answer Notes Patient is a former smoker How long has it been since you last smoked? > 10 years Alcohol Screen Question Answer Notes Did you have a drink containing alcohol in the p ast year? No Points 0 Interpretation Negative PROBLEMS Problem Type ICD Code Onset Dates Problem Status W/U Status Risk SNOMED Code Notes Problem Encounter for screening for malignant neoplasm of colon (Z12.11) Active confirmed Screening for malignant neoplasm of colon (962115709) Problem watermaster (current) use of aspirin (Z79.82) Active confirmed Long-term current use of antiplatelet drug (08130773565122 1) Problem Diverticulosis of large intestine without perforation or abscess without bleeding (K57.30) Active confirmed Diverticul ar disease of colon (371790071) Encounters Encounter Location Date Provider Diagnosis [facility] Outpatient [address] [place], [place] [phone] 11/16/2022 Ignacio Iglesias Encounter for screen ing colonoscopy Z12.11 ; Colon polyp K63.5 ; Diverticulosis of large intestine without perforation or abscess without bleeding K57.30 and Other hemorrhoids K64.8 [facility] [address] [place] [address] 09/18/2022 Ignacio Iglesias Encounter for screen ing for malignant neoplasm of colon Z12.11 and skilled nursing (current) use of aspirin Z79.82 ASSESSMENTS Encounter Date Diagnosis Assessment Notes Treatment Notes Treatment Clinical Notes 11/16/2022 Encounter for screening colonoscopy (ICD-10 - Z12.11) 11/16/2022 Colon polyp (ICD-10 - K63.5) 09/18/2022 Encounter for screening for malignant neoplasm of colon (ICD-10 - Z12.11) Stop aspirin for 3 days before the colonoscopy 09/18/2022 skilled nursing (current) use of aspirin (ICD-10 - Z79.82) 11/16/2022 Diverticulosis of large intestine without perforation or abscess without bleeding (ICD-10 - K57.30) 11/16/2022 Other hemorrhoids (ICD-10 - K64.8) PLAN OF TREATMENT Future Test Test Name Order Date COLONOSCOPY 09/18/2022 Insurance Providers Payer Name Payer Address Payer Phone Subscriber Number Group Number Insured Name Patient Relationship to Insured Coverage Start Date Coverage End Date MED[place] [address] [place] [phone] [id number] DEXTER FAY Self - patient is the insured MEDICAID OF [facility] [address] [place] [phone] [id number] DEXTER FAY Self - patient is the insured MEDICAL (GENERAL) HISTORY Medical History History ICD Code Stroke 2013 --some cognitive issues Pericarditis in 2010 Hypertension HIV-nondetectable---since 1989's Negative colonoscopy approx 2011 at [facility] Hyperlipidemia Denies PR,DM,Lung disease,renal disease Surgical History Surgery Date(Month/Year) Ganglion removed from both wrist Left Hip surgery for avascular necrosis
[2023-07-26] MEDS: Metoclopramide HCl 10 MG/2 ML VIAL IVPUSH (03:32)
[2023-07-26 03:33] LABS: Alanine Aminotransferase 31 U/L (0-40); Albumin Level 4.2 g/dL (3.5-5.0); Alkaline Phosphatase 58 U/L (39-117); Anion Gap 19 (12-20); Aspartate Amino Transferase 25 U/L (5-37); Bilirubin Direct 0.2 mg/dL (0.0-0.5); Bilirubin Total 0.4 mg/dL (0.0-1.0); Blood Urea Nitrogen 21 mg/dL (9-16); Calcium 9.7 mg/dL (8.4-10.2); Carbon Dioxide 23 mmol/L (22-29); Chloride 103 mmol/L (96-108); Creatinine Clr Calc Pharmacy 63.4; Estimated Glomerular Filt Rate 53; Glucose Random 136 mg/dL (60-115); Potassium 3.6 mmol/L (3.3-5.1); Sodium 141 mmol/L (135-145); Total Protein 7.7 g/dL (6.5-8.0)
[2023-07-26] MEDS: diphenhydrAMINE HCL 50 MG/ML VIAL 25 MG IVPUSH (03:33)
[2023-07-26] MEDS: Morphine Sulfate 4 MG/ML CARTRIDGE IVPUSH (03:33)
[2023-07-26 03:36] LABS: IDNOW Serial# 08D9AD1C; IDNOW Serial# BCCEAD1C; Influenza A Negative (Negative); Influenza B2 Negative (Negative)
[2023-07-26 03:37] LABS: COVID-19 Test Negative (Negative)
[2023-07-26 03:39] LABS: Troponin-I High Sensitivity < 2.7 ng/L (<3.5-35.0)
[2023-07-26] MEDS: iohexoL 350 MG/ML 100 ML INFUS..BTL 70 ML IV (03:58)
--- NOTE | 2023-07-26 06:59 | PC.NURSE ---
Alert and oriented, patient reports 8/10 pain in head, states legs keep cramping.
[2023-07-26 07:33] LABS: Glucose, Whole Blood 109 mg/dL (60-115)
--- NOTE | 2023-07-26 07:41 | P.HPHOSP_ITS ---
History of Present Illness Date of Service: 07/26/23 Chief Complaint: headahce right hand numbness 67M PMH HIV, hypertension, CVA in 2014 with mild residual ataxia, HCV status post treatment, presented with headache and right hand numbness. Patient woke up on a.m. of presentation with severe headache associated with right hand numbness. Symptoms still present at time of admission. Patient states he had similar symptoms with left hand numbness about 1 week prior to presentation. He also reports flu-like illness since 4 days prior to presentation with subjective fevers, chills, body aches. In ED, CTA head and neck unremarkable, flu/RSV/COVID negative. [facility] Medical History Hyperlipidemia Pericarditis HIV disease Stroke Hypertension Surgical History History of surgical removal of ganglion cyst History of repair of left hip joint Social History Alcohol intake: former Patient Tobacco Use Status: Former Tobacco user Smoked in Last 30 Days: No Use of substances other than those prescribed or required for medical reasons: No Advance Directives: No Advance Directives Information Provided: Yes Meds Allergies Allergy/AdvReac Type Severity Reaction Status Date / Time getachew inhibitors Allergy Unknown cough Uncoded 11/16/22 10:21 Active Medications: Current Medications Aspirin (Aspirin Enteric Coated 325 Mg Tablet.) 325 mg PO DAILY [facility] Atorvastatin Calcium (Atorvastatin Calcium 20 Mg Tablet) 20 mg PO DAILY [facility] Bictegravir/Emtricitabine/Tenofovir (Bictegrav/Emtricit/Tenofov Ala Tablet) 1 tab PO BEDTIME [facility] Losartan Potassium (Losartan Potassium 50 Mg Tablet) 50 mg PO DAILY [facility]OR; Protocol Home Medications Medication Instructions Recorded Confirmed Last Taken Type aspirin 325 mg tablet,delayed 1 tab PO DAILY 11/15/22 07/26/23 Unknown History release atorvastatin 20 mg tablet 1 tab PO DAILY 11/15/22 07/26/23 Unknown History bictegravir 50 mg-emtricitabine 1 tab PO BEDTIME 11/15/22 07/26/23 Unknown History 200 mg-tenofovir alafenam 25 mg tablet (Biktarvy) chlorthalidone 25 mg tablet 1 tab PO DAILY 11/15/22 07/26/23 Unknown History hydrochlorothiazide 25 mg tablet 1 tab PO DAILY 11/15/22 11/16/22 Unknown History losartan 50 mg tablet 1 tab PO DAILY 11/15/22 07/26/23 Unknown History Physical Exam 2 Vital Signs and Narrative: Vital Signs: Last Vital Signs Temp 98.5 F 07/26/23 05:54 Pulse 66 07/26/23 06:59 Resp 18 07/26/23 06:59 BP 130/87 07/26/23 06:59 Pulse Ox 98 07/26/23 06:59 O2 Del Method Room Air 07/26/23 06:59 BMI result Body Mass Index 29.1 General: AO X 3, no acute distress Resp: CTA bilateral, no accessory muscles used CVS: S1,S2,RRR GI: soft, non tender, non distended Neuro: motor grossly intact, alert Psych: appropriate affect, appropriate insight Results Labs 07/26/23 03:09 07/26/23 03:09 Labs: Laboratory Results - last 24 hr 07/26/23 07/26/23 07/26/23 02:52 02:53 03:09 MCV 91.0 MCH 31.8 MCHC 34.9 RDW 14.2 Plt Count 237 MPV 8.9 L Immature Gran % (Auto) 0.1 Neut % (Auto) 43.5 L Lymph % (Auto) 42.9 H [place] % (Auto) 9.9 Eos % (Auto) 2.6 Baso % (Auto) 1.0 Lymph # (Auto) 3.0 [place] # (Auto) 0.7 Eos # (Auto) 0.2 Baso # (Auto) 0.1 Abs Immat Gran (auto) 0.01 Absolute Neuts (auto) 3.0 Absolute Nucleated RBC 0.000 Nucleated RBC % (auto) 0.0 Whole Blood PT 12.0 Whole Blood INR 1.0 Anion Gap 19 Estim Creat Clear Calc 63.4 Estimated GFR 53 POC Glucose 131 H Random Glucose 136 H Calcium 9.7 Total Bilirubin 0.4 Direct Bilirubin 0.2 AST 25 ALT 31 Alkaline Phosphatase 58 Total Protein 7.7 Albumin 4.2 COVID-19 ([facility]) Negative COVID-19 Clin Com See Note Influenza Type A (DARCY) Negative Influenza Type B (DARCY) Negative Influenza A & B Note See Note 07/26/23 07:30 MCV MCH MCHC RDW Plt Count MPV Immature Gran % (Auto) Neut % (Auto) Lymph % (Auto) [place] % (Auto) Eos % (Auto) Baso % (Auto) Lymph # (Auto) [place] # (Auto) Eos # (Auto) Baso # (Auto) Abs Immat Gran (auto) Absolute Neuts (auto) Absolute Nucleated RBC Nucleated RBC % (auto) Whole Blood PT Whole Blood INR Anion Gap Estim Creat Clear Calc Estimated GFR POC Glucose 109 Random Glucose Calcium Total Bilirubin Direct Bilirubin AST ALT Alkaline Phosphatase Total Protein Albumin COVID-19 ([facility]) COVID-19 Clin Com Influenza Type A (DARCY) Influenza Type B (DARCY) Influenza A & B Note Imaging Radiologist's Impressions: Impressions Head/Neck CTA 07/26/23 04:19 IMPRESSION: 1. No acute intracranial findings. Chronic appearing infarct in the left basal ganglia and periventricular white matter. 2. No hemodynamically significant stenosis in the major arteries of the neck. No large vessel occlusion or significant stenosis in the intracranial circulation. Assessment and Plan (1) Transient cerebral ischemia: Status: Acute Plan 67M PMH HIV, hypertension, CVA in 2013 with mild residual ataxia, HCV status post treatment, presented with headache and right hand numbness Headache and right hand numbness Differential includes complicated migraine and acute TIA/CVA Aspirin, statin MRI Neuro eval History of CVA Aspirin statin Hypertension Losartan HIV Biktarvy DVT prophylaxis with Lovenox Full code Time Spent With Patient Time: Total time managing care of this patient today ____ minutes. Quality Stroke Does the patient have a stroke diagnosis?: No VTE Prior VTE?: No VTE Risk Level:: Medical - moderate - high VTE Device Contraindication: Treatment Not Indicated VTE Drug Contraindication: N/A - Med Ordered
--- NOTE | 2023-07-26 08:25 | PHA.MEDREC ---
Pharmacy Consult ? Medication Reconciliation MED REC REVIEW AND SPOKE WITH PATIENT HE IS STILL ON HCTZ. Pharmacy has completed the medication reconciliation.
[2023-07-26] MEDS: Losartan Potassium 50 MG TABLET PO (08:35)
[2023-07-26] MEDS: Atorvastatin Calcium 20 MG TABLET PO (08:35)
[2023-07-26] MEDS: Aspirin Enteric Coated 325 MG TABLET.DR PO (08:35)
[2023-07-26] MEDS: 0.9 % Sodium Chloride Flush 3 ML SYRINGE IVFLUSH ×3 (08:36→20:42)
--- NOTE | 2023-07-26 09:18 | PC.NURSE ---
MRI screening form completed with patient and faxed to MRI
--- NOTE | 2023-07-26 10:30 | PC.NURSE ---
Working with therapy, reports headache has improved.
--- NOTE | 2023-07-26 11:32 | P.CNNE_ITS ---
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 He said that sometime his right hand was numb and sometime left. This has never happened before and there was no particular time of the day when this was happening. He was also having ?severe? headache though he did not seem to be in distress when I talked to him. There was no history of any recent seizure fever chills or cold or flu-like illness Review of Systems 2 Review of Systems: As per HPI [facility] Past Medical History Medical History Hyperlipidemia Pericarditis HIV disease Stroke Hypertension Surgical History Surgical History History of surgical removal of ganglion cyst History of repair of left hip joint Social History Social History Alcohol intake: former Patient Tobacco Use Status: Former Tobacco user Smoked in Last 30 Days: No Use of substances other than those prescribed or required for medical reasons: No Advance Directives: No Advance Directives Information Provided: Yes Meds Allergies Allergy/AdvReac Type Severity Reaction Status Date / Time getachew inhibitors Allergy Unknown cough Uncoded 11/16/22 10:21 Active Medications: Current Medications Aspirin (Aspirin Enteric Coated 325 Mg Tablet.) 325 mg PO DAILY [facility] Last Admin: 07/26/23 08:35 Dose: 325 mg Atorvastatin Calcium (Atorvastatin Calcium 20 Mg Tablet) 20 mg PO DAILY [facility] Last Admin: 07/26/23 08:35 Dose: 20 mg Bictegravir/Emtricitabine/Tenofovir (Bictegrav/Emtricit/Tenofov Ala Tablet) 1 tab PO BEDTIME [facility] Enoxaparin Sodium (Enoxaparin Sodium 40 Mg/0.4 Ml Syringe) 40 mg SUBCUT Q24H [facility] Losartan Potassium (Losartan Potassium 50 Mg Tablet) 50 mg PO DAILY [facility]; Protocol Last Admin: 07/26/23 08:35 Dose: 50 mg Sodium Chloride (0.9 % Sodium Chloride Flush 3 Ml Syringe) 3 ml IVFLUSH QSHIFT [facility] Last Admin: 07/26/23 08:36 Dose: 3 ml Home Medications Medication Instructions Recorded Confirmed Last Taken Type aspirin 325 mg tablet,delayed 1 tab PO DAILY 11/15/22 07/26/23 Unknown History release atorvastatin 20 mg tablet 1 tab PO DAILY 11/15/22 07/26/23 Unknown History bictegravir 50 mg-emtricitabine 1 tab PO BEDTIME 11/15/22 07/26/23 Unknown History 200 mg-tenofovir alafenam 25 mg tablet (Biktarvy) chlorthalidone 25 mg tablet 1 tab PO DAILY 11/15/22 07/26/23 Unknown History hydrochlorothiazide 25 mg tablet 1 tab PO DAILY 11/15/22 07/26/23 07/25/23 History losartan 50 mg tablet 1 tab PO DAILY 11/15/22 07/26/23 Unknown History Physical Exam 2 Vital Signs: Vital Signs: Last Vital Signs Temp 98.5 F 07/26/23 05:54 Pulse 70 07/26/23 08:37 Resp 18 07/26/23 08:37 BP 125/90 H 07/26/23 08:37 Pulse Ox 98 07/26/23 08:37 O2 Del Method Room Air 07/26/23 08:37 BMI result Body Mass Index 29.1 Neuro: Other: He is alert and awake with normal spontaneity of speech fluency comprehension and affect. Face is symmetrical. Visual baca are full. There is mild right- sided pronator drift. Deep tendon reflexes are trace to absent with flat plantars. There is no neglect. Results Labs 07/26/23 03:09 07/26/23 03:09 Labs: Short CBC 07/26/23 Range/Units 03:09 WBC 7.0 (4.8-10.8) X10*3/uL Hgb 14.5 (14.0-18.0) g/dl Hct 41.5 L (42.0-52.0) % Plt Count 237 (160-400) X10*3/uL BMP 07/26/23 03:09 Sodium 141 Potassium 3.6 Chloride 103 Carbon Dioxide 23 BUN 21 H Creatinine 1.33 Calcium 9.7 Liver Function 07/26/23 Range/Units 03:09 Total Bilirubin 0.4 (0.0-1.0) mg/dL Direct Bilirubin 0.2 (0.0-0.5) mg/dL AST 25 (5-37) U/L ALT 31 (0-40) U/L Alkaline Phosphatase 58 (39-117) U/L Albumin 4.2 (3.5-5.0) g/dL CT/CT angio head neck IMPRESSION: 1. No acute intracranial findings. Chronic appearing infarct in the left basal ganglia and periventricular white matter. 2. No hemodynamically significant stenosis in the major arteries of the neck. No large vessel occlusion or significant stenosis in the intracranial circulation. Assessment and Plan (1) Headache: Qualifiers: Headache type: unspecified Intractability: not intractable Status: Acute 67 years old man with HIV disease and complain of severe headache and bilateral hand numbness. Exact etiology was difficult to determine at this time. I would suggest a noncontrast MRI of brain. Differential diagnosis would include migraine or similar syndromes. Otherwise, use Fioricet p.r.n. for headache control Time Spent With Patient Time: Total time managing care of this patient today ____ minutes. Procedures Date of Service Date of Service: 07/26/23
--- NOTE | 2023-07-26 12:33 | PC.NURSE ---
Patient requesting discharge home. Asked patient if he was feeling better, patient stating a little but he was upset about overhearing the code that happened next door in [facility]. Patient offered room change, declined stating that he understands is apart of life. Patient asked if he would be willing to stay until MRI is obtained, patient stating yes. Provider notified.
--- NOTE | 2023-07-26 15:00 | PC.NURSE ---
Report given to accepting unit
[2023-07-26] MEDS: Bictegrav/Emtricit/Tenofov Ala TABLET 1 TAB PO (20:36)
[2023-07-26] MEDS: Acetaminophen 325 MG TABLET 650 MG PO (20:36)
[2023-07-27] VITALS: BP 135/62; PULSE 71; RESP 18; TEMP 36.6; O2SAT 98
[2023-07-27 03:14] VITALS: BP 140/82; PULSE 71; RESP 18; TEMP 36.5; O2SAT 98
[2023-07-27 06:24] LABS: Hematocrit 41.2 % (42.0-52.0); Hemoglobin 14.2 g/dl (14.0-18.0); Mean Corpuscular HGB Conc 34.5 g/dl (31.0-36.0); Mean Corpuscular Hemoglobin 31.7 pg (27.0-33.0); Mean Platelet Volume 9.2 fL (9.4-12.4); Platelet Count 242 X10*3/uL (160-400); Red Blood Count 4.48 X10*6/uL (4.60-5.80); Red Cell Distribution Width 14.1 % (11.0-16.0); White Blood Count 6.2 X10*3/uL (4.8-10.8)
[2023-07-27 06:45] LABS: Anion Gap 15 (12-20); Blood Urea Nitrogen 16 mg/dL (9-16); Calcium 9.2 mg/dL (8.4-10.2); Carbon Dioxide 26 mmol/L (22-29); Chloride 102 mmol/L (96-108); Cholesterol 110 mg/dL (<200); Creatinine Clr Calc Pharmacy 82.7; Estimated Glomerular Filt Rate > 60; Glucose Fasting 115 mg/dL (60-99); HDL Cholesterol 33 mg/dL (>40); LDL Cholesterol Calculated 56 mg/dL (<100); Potassium 3.5 mmol/L (3.3-5.1); Sodium 139 mmol/L (135-145); Triglycerides 106 mg/dL (<150)
[2023-07-27 07:37] VITALS: BP 127/94; PULSE 63; RESP 18; TEMP 36.2; O2SAT 97
[2023-07-27] MEDS: Aspirin Enteric Coated 325 MG TABLET.DR PO (08:42)
[2023-07-27] MEDS: Atorvastatin Calcium 20 MG TABLET PO (08:42)
[2023-07-27] MEDS: Losartan Potassium 50 MG TABLET PO (08:42)
[2023-07-27] MEDS: Acetaminophen 325 MG TABLET 650 MG PO (08:43)
--- NOTE | 2023-07-27 09:12 | P.DS_ITS ---
DS: Providers Provider Date of Service: 07/27/23 Date of admission: 07/26/23 07:40 Primary care physician: Unknown Physician Consults: 07/26/23 07:38 Consult to Neurology Routine Consulting Provider: Luis Fernando Scott Reason for consultation: headache, right hand numbness DS: Diagnosis Discharge Diagnosis (1) Headache: Status: Acute DS: Summary Hospital Course Hospital Course: from initial hpi: 67M PMH HIV, hypertension, CVA in 2013 with mild residual ataxia, HCV status post treatment, presented with headache and right hand numbness. Patient woke up on a.m. of presentation with severe headache associated with right hand numbness. Symptoms still present at time of admission. Patient states he had similar symptoms with left hand numbness about 1 week prior to presentation. He also reports flu-like illness since 4 days prior to presentation with subjective fevers, chills, body aches. In ED, CTA head and neck unremarkable, flu/RSV/COVID negative. hospital course: Patient was admitted for headache and right hand numbness. Was seen by neurology recommended MRI, MRI did show some increase in nonspecific foci of hyper intensity seen in cerebral white matter, progressed from 2013, however, this was not felt to be clinically related at this time. Likely this was complicated migraine and symptomatic treatment was recommended. Due to history of CVA with residual ataxia aspirin statin was continued. For hypertension was continue losartan. For HIV was continued on Biktarvy. Patient will be discharged home. Time Spent with Patient Time attestation: Total time managing care of this patient today ____ minutes. Discharge coordination time: Greater than 30 minutes Quality: Safe Use of Opioids Does Pt have an Active Cancer Diagnosis on the Problem List?: No Quality: Stroke Does the patient have a stroke diagnosis?: No Physical Exam Vital Signs: Vital Signs: Last Vital Signs Temp 97.1 F 07/27/23 07:37 Pulse 63 07/27/23 07:37 Resp 18 07/27/23 07:37 BP 127/94 H 07/27/23 07:37 Pulse Ox 97 07/27/23 07:37 O2 Del Method Room Air 07/27/23 07:37 BMI result Body Mass Index 29.1 Neuro: Other: He is alert and awake with normal spontaneity of speech fluency comprehension and affect. Face is symmetrical. Visual baca are full. There is mild right- sided pronator drift. Deep tendon reflexes are trace to absent with flat plantars. There is no neglect. DS: Data Data Completed and Pending Labs on day of discharge: Laboratory Results - last 24 hr 07/27/23 05:58 WBC 6.2 RBC 4.48 L Hgb 14.2 Hct 41.2 L MCV 92.0 MCH 31.7 MCHC 34.5 RDW 14.1 Plt Count 242 MPV 9.2 L Absolute Nucleated RBC 0.000 Nucleated RBC % (auto) 0.0 Sodium 139 Potassium 3.5 Chloride 102 Carbon Dioxide 26 Anion Gap 15 BUN 16 Creatinine 1.02 Estim Creat Clear Calc 82.7 Estimated GFR > 60 Fasting Glucose 115 H Calcium 9.2 Triglycerides 106 Cholesterol 110 LDL Cholesterol, Calc 56 HDL Cholesterol 33 L Discharge Plan Discharge Anticipated Discharge Date/Time: 07/27/23 09:10 Patient Disposition: Home, Self-Care Discharge Diagnosis: complicated migraine Referrals: Physician,Unknown J [Primary Care Provider] - 1 Week Discharge Medications: Continued losartan 50 mg tablet 1 tab PO DAILY atorvastatin 20 mg tablet 1 tab PO DAILY chlorthalidone 25 mg tablet 1 tab PO DAILY aspirin 325 mg tablet,delayed release (DR/EC) 1 tab PO DAILY hydrochlorothiazide 25 mg tablet 1 tab PO DAILY Biktarvy 50-200-25 mg tablet 1 tab PO BEDTIME Discharge Orders: Discharge Order (Routine); Ordered 07/27/23 Ordered By: Elías Santa Diet: Advance to usual diet Activity on Discharge: As tolerated Stand Alone Forms: Patient Portal Discharge page Care Plan Goals: recovery Health Concerns: comlicated migraine, history of cva Plan of Treatment: continue asa, statin, Assessment: see above
--- NOTE | 2023-07-27 09:57 | MHC.CM.PN ---
IMM 07/27/23 Patient is independent. He lives by himself. DX MIGRANE, now resolved. Patient is medically cleared for discharge. DP home self care. Patient has arranged for transportation home.
== END 2023-07-27 10:47 | disposition home or self-care (01) | DRG 103 ==
LOC: HO.ED 05:25 → HO.EDOVER 07:49 → HO.IMC 12:44
PROVIDERS: Admitting Provider Internal Medicine; Emergency Provider Emergency Medicine; Visit Provider Internal Medicine
DX: G43.109 Migraine with aura, not intractable, without status migrainosus (principal); Z21 Asymptomatic human immunodeficiency virus [HIV] infection status; I69.393 Ataxia following cerebral infarction; Z20.822 Contact with and (suspected) exposure to COVID-19; Z87.891 Personal history of nicotine dependence; Z86.19 Personal history of other infectious and parasitic diseases; Z79.82 Long term (current) use of aspirin; Z79.899 Other long term (current) drug therapy
CPT/HCPCS: 36415; 70496; 70498; 70551; 80048; 80061; 80076; 82947; 84484; 85025; 85027; 85610; 87502; 87635; 93005; 97162; 97166; 99222; 99285; J1200; J1650; J2270; J2765; Q9967

== ENCOUNTER → 2023-07-26 03:25 | Outpatient (BNV) | payer MEDICARE, MEDICAID, SELFPAY | PROVIDERS: Emergency Provider Emergency Medicine; Visit Provider Internal Medicine | DX: R51.9 Headache, unspecified (principal) | CPT/HCPCS: 99223; 99239 ==

== ENCOUNTER 2023-12-03 11:09 | Outpatient (REF) | payer MEDICARE, MEDICAID, SELFPAY ==
[2023-12-03 13:20] LABS: MANUAL DIFF FLAG NO
[2023-12-03 13:31] LABS: Basophils Absolute Auto 0.1 X10*3/uL (0.0-0.2); Basophils Percent Auto 0.9 % (0-2); Eosinophils Absolute Auto 0.1 X10*3/uL (0.0-0.4); Eosinophils Percent Auto 1.6 % (0-4); Hematocrit 42.9 % (42.0-52.0); Hemoglobin 15.1 g/dl (14.0-18.0); Imm Gran Abs Auto 0.01 X10*3/uL (0.00-0.03); Imm Gran Pct Auto 0.2 % (0.0-0.4); Lymphocytes Absolute Auto 2.8 X10*3/uL (1.2-4.9); Lymphocytes Percent Auto 49.2 % (20-40); Mean Corpuscular HGB Conc 35.2 g/dl (31.0-36.0); Mean Corpuscular Hemoglobin 32.8 pg (27.0-33.0); Mean Corpuscular Volume 93.3 fL (80.0-98.0); Mean Platelet Volume 9.5 fL (9.4-12.4); Monocytes Absolute Auto 0.4 X10*3/uL (0.1-1.2); Neutrophils Absolute Auto 2.3 x10*3/uL (2.0-8.3); Neutrophils Percent Auto 41.1 % (45-73); Platelet Count 232 X10*3/uL (160-400); Red Cell Distribution Width 13.7 % (11.0-16.0); White Blood Count 5.6 X10*3/uL (4.8-10.8)
[2023-12-03 13:54] LABS: Alanine Aminotransferase 28 U/L (0-40); Albumin Level 4.3 g/dL (3.5-5.0); Alkaline Phosphatase 68 U/L (39-117); Anion Gap 14 (12-20); Aspartate Amino Transferase 22 U/L (5-37); Bilirubin Total 0.6 mg/dL (0.0-1.0); Blood Urea Nitrogen 21 mg/dL (9-16); Calcium 9.3 mg/dL (8.4-10.2); Carbon Dioxide 28 mmol/L (22-29); Chloride 103 mmol/L (96-108); Estimated Glomerular Filt Rate 55; Glucose Random 187 mg/dL (60-115); Potassium 3.6 mmol/L (3.3-5.1); Sodium 141 mmol/L (135-145); Total Protein 7.9 g/dL (6.5-8.0)
[2023-12-04 11:03] LABS: Absolute CD3 Count 2011 cells/uL (840-3060); Absolute CD4 Count 600 cells/uL (490-1740); Absolute CD8 Count 1426 cells/uL (180-1170); Absolute Lymphocytes 2692 cells/uL (850-3900); CD4 CD8 Ratio 0.42 (0.86-5.00); Percent CD3 Cells 75 % (57-85); Percent CD4 Cells 22 % (30-61); Percent CD8 Cells 53 % (12-42)
[2023-12-05 14:04] LABS: HIV RNA PCR Qn Copies NOT DETECTED copies/mL (NOT DETECTED); HIV RNA PCR Qn Log Copies NOT DETECTED (NOT DETECTED)
[2023-12-06 12:24] LABS: TS Negative Control Passed; TS Panel A 0; TS Panel B 0; TS Positive Control Passed; TSpotTB Negative (Negative)
== END 2023-12-03 11:10 | disposition home or self-care (01) ==
LOC: HO.HHCL 11:09
PROVIDERS: Visit Provider Internal Medicine
DX: B20 Human immunodeficiency virus [HIV] disease (principal)
CPT/HCPCS: 36415; 80053; 85025; 86359; 86360; 86481; 87536

== ENCOUNTER 2024-02-04 11:15 | Outpatient (REF) | payer MEDICARE, MEDICAID, SELFPAY ==
[2024-02-04 13:19] LABS: MANUAL DIFF FLAG NO
[2024-02-04 13:35] LABS: Basophils Percent Auto 0.3 % (0-2); Eosinophils Absolute Auto 0.2 X10*3/uL (0.0-0.4); Eosinophils Percent Auto 3.1 % (0-4); Hematocrit 41.3 % (42.0-52.0); Hemoglobin 14.3 g/dl (14.0-18.0); Imm Gran Abs Auto 0.01 X10*3/uL (0.00-0.03); Imm Gran Pct Auto 0.2 % (0.0-0.4); Lymphocytes Absolute Auto 3.3 X10*3/uL (1.2-4.9); Lymphocytes Percent Auto 56.3 % (20-40); Mean Corpuscular HGB Conc 34.6 g/dl (31.0-36.0); Mean Corpuscular Hemoglobin 31.9 pg (27.0-33.0); Mean Corpuscular Volume 92.2 fL (80.0-98.0); Mean Platelet Volume 9.8 fL (9.4-12.4); Monocytes Absolute Auto 0.4 X10*3/uL (0.1-1.2); Neutrophils Absolute Auto 1.9 x10*3/uL (2.0-8.3); Neutrophils Percent Auto 33.1 % (45-73); Platelet Count 254 X10*3/uL (160-400); Red Blood Count 4.48 X10*6/uL (4.60-5.80); Red Cell Distribution Width 14.2 % (11.0-16.0); White Blood Count 5.8 X10*3/uL (4.8-10.8)
[2024-02-04 13:48] LABS: Alanine Aminotransferase 29 U/L (0-40); Albumin Level 4.3 g/dL (3.5-5.0); Alkaline Phosphatase 60 U/L (39-117); Anion Gap 10 (12-20); Aspartate Amino Transferase 21 U/L (5-37); Bilirubin Total 0.6 mg/dL (0.0-1.0); Blood Urea Nitrogen 24 mg/dL (9-16); Calcium 9.6 mg/dL (8.4-10.2); Carbon Dioxide 30 mmol/L (22-29); Chloride 105 mmol/L (96-108); Estimated Glomerular Filt Rate > 60; Glucose Random 113 mg/dL (60-115); Potassium 3.3 mmol/L (3.3-5.1); Sodium 142 mmol/L (135-145)
[2024-02-05 09:58] LABS: Absolute CD3 Count 2535 cells/uL (840-3060); Absolute CD4 Count 755 cells/uL (490-1740); Absolute CD8 Count 1790 cells/uL (180-1170); Absolute Lymphocytes 3198 cells/uL (850-3900); CD4 CD8 Ratio 0.42 (0.86-5.00); Percent CD3 Cells 79 % (57-85); Percent CD4 Cells 24 % (30-61); Percent CD8 Cells 56 % (12-42)
[2024-02-06 13:38] LABS: HIV RNA PCR Qn Copies 40 copies/mL (NOT DETECTED)
== END 2024-02-04 11:16 | disposition home or self-care (01) ==
LOC: HO.HHCL 11:15
PROVIDERS: Visit Provider Internal Medicine
DX: B20 Human immunodeficiency virus [HIV] disease (principal)
CPT/HCPCS: 36415; 80053; 85025; 86359; 86360; 87536

== ENCOUNTER 2024-09-07 09:11 | Outpatient (AMB) | payer MEDICARE, MEDICAID, SELFPAY ==
--- NOTE | 2024-09-07 09:15 | AM.OFFWIN_ITS ---
Intake Vital Signs 09/07/24 09:16 Height 6 ft Weight 213 lb 8 oz BMI 29.0 BP 132/90 H Blood Pressure Location Lt brachial Position Sitting Pulse 75 Pulse Source Pulse Oximeter Pulse Oximetry (%) 97 Oxygen Delivery Method Room Air Intake Visit Reasons: EP-lt leg pulled muscle Intake Note: Patient here for left leg pulled muscle that has been present since saturday Patient Tobacco Use Status: Former Tobacco user Allergies getachew inhibitors Allergy (Unknown, Uncoded 09/07/24 09:17) cough Do you need a note to return to daycare/school/sports/work: No HPI HPI Comments History of Present Illness Details Patient is a 68-year-old male complaining of left buttock and hamstring pain for the last 6 days. He tells me that 6 days ago they were giving away turkeys and he reached into a van to grab a turkey and when he pulled it back and stood up, he felt a shooting pain into his left hamstring. He states he has been resting it and taking Tylenol since then but it has not gotten better. He denies any back pain loss of control of his bladder or bowels. [facility] Medical History Hyperlipidemia Pericarditis HIV disease Stroke Hypertension Surgical History History of surgical removal of ganglion cyst History of repair of left hip joint Social History Alcohol intake: former Patient Tobacco Use Status: Former Tobacco user service: No Review of Systems Const All systems reviewed & are unremarkable except as noted in HPI and below Physical Exam Vital Signs: Last Vital Signs Pulse 75 09/07/24 09:16 BP 132/90 H 09/07/24 09:16 Pulse Ox 97 09/07/24 09:16 Oxygen Delivery Method Room Air 09/07/24 09:16 BMI result Body Mass Index 29.0 Const General: cooperative, healthy appearing and comfortable Orientation/consciousness: patient oriented x3 HEENT Head: Yes normal to inspection and Yes normocephalic General nose exam: Normal external nose present Face and sinus: Yes normal facial exam Eyes General: appearance normal, both eyes and all related structures Resp Effort & Inspection: normal respiratory effort and able to speak in complete sentences Back/Spine/Pelvis Cervical Spine: cervical ROM normal and No Cervical spine tenderness Thoracic/Lumbar Spine: thoracic and lumbar spine normal to inspection, No thoracic spinal tenderness and No lumbar spinal tenderness Pelvis: buttock tenderness on the left Neuro General: patient oriented x3 Assessment & Plan Assessment & Plan (1) Sciatica of left side: Code(s): M54.32 - Sciatica, left side Plan: Recommended he stop the Tylenol and start taking Aleve every 12 hours for the next 4-5 days. Also sent low-dose prednisone burst. If no improvement in his symptoms, he should follow up with his PCP. If he loses control of his bladder or bowels, he knows he needs to go to the emergency room. Plan See above Medications: New prednisone 20 mg PO DAILY 5 tabs 0RF Coding Level of Care Code New Pt Level 3 (96249) Diagnoses Sciatica of left side M54.32
[2024-09-07 09:16] VITALS: BP 132/90; PULSE 75; O2SAT 97; BMI 29.0
== END 2024-09-07 09:46 | disposition home or self-care (01) ==
PROVIDERS: Visit Provider Physician Assistant
DX: M54.32 Sciatica, left side (principal)

== ENCOUNTER → 2024-09-07 09:11 | Outpatient (BNVA) | payer MEDICARE, MEDICAID, SELFPAY | PROVIDERS: Visit Provider Physician Assistant | DX: M54.32 Sciatica, left side (principal) | CPT/HCPCS: 99202 ==

== ENCOUNTER 2024-10-15 12:23 | Outpatient (AMB) | payer MEDICARE, MEDICAID, SELFPAY ==
--- OUTSIDE RECORDS SUMMARY | 2024-10-15 12:24 | XMS_ITS | Patient Health Record ---
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.82) Active confirmed Long-term current use of antiplatelet drug ([id number] 1) Problem Diverticulosis of large intestine without perforation or abscess without bleeding (K57.30) Active confirmed Diverticul ar disease of colon (272433685) PLAN OF TREATMENT Future Test Test Name Order Date COLONOSCOPY 09/18/2022 Insurance Providers Payer Name Payer Address Payer Phone Subscriber Number Group Number Insured Name Patient Relationship to Insured Coverage Start Date Coverage End Date MEDICARE OF [place] [address] [place] [id number] NYA DEXTER Self - patient is the insured MEDICAID OF [facility] [address] [place] [address] [id number] DEXTER FAY Self - patient is the insured MEDICAL (GENERAL) HISTORY Medical History History ICD Code Stroke 2013 --some cognitive issues Pericarditis in 2010 Hypertension HIV-nondetectable---since 1989's Negative colonoscopy approx 2011 at [facility] [place] Hyperlipidemia Denies CA,DM,Lung disease,renal disease Surgical History Surgery Date(Month/Year) Ganglion removed from both wrist Left Hip surgery for avascular necrosis
--- NOTE | 2024-10-15 13:19 | MHC.OFFWIV ---
Intake Vital Signs 10/15/24 13:22 Weight 216 lb BP 140/90 H Blood Pressure Location Rt brachial Position Sitting Pulse 59 Pulse Source Pulse Oximeter Pulse Oximetry (%) 97 Oxygen Delivery Method Room Air Intake Visit Reasons: EP Swelling in face, and feet, fatigue Intake Note: Patient here for face, hands and feet swelling and tingling for about 2-3 days Patient Tobacco Use Status: Former Tobacco user Allergies getachew inhibitors Allergy (Unknown, Uncoded 10/15/24 13:23) cough Do you need a note to return to daycare/school/sports/work: No HPI EP Swelling in face, and feet, fatigue HPI Details This note is constructed using voice recognition software. While every effort has been made to ensure accuracy, museum preparator errors may have been included. The patient is a 69 year old male who presents to the clinic today with reports of hands and feet and facial near the nose swelling for the past 2 days. He denies any new medication, food, soap, lotion. He denies any shortness of breath difficulty breathing or new changes and difficulty swallowing. He does report chronic difficulty with swallowing secondary to a CVA that he had in 2013. He denies any particular injury. He does report that there is some tingling in the feet when he is having swelling, but when he elevates the legs the swelling in the tingling both improve. He does report that he is taking both chlorthalidone and hydrochlorothiazide, and is compliant with his medication. He did not make attempts to contact his PCP. He denies chest pain, palpitations, shortness of breath, difficulty swallowing, fever, chills, body aches, redness, warmth. [facility] Medical History Hyperlipidemia Pericarditis HIV disease Stroke Hypertension Surgical History History of surgical removal of ganglion cyst History of repair of left hip joint Social History Alcohol intake: former Patient Tobacco Use Status: Former Tobacco user service: No Review of Systems Const All systems reviewed & are unremarkable except as noted in HPI and below Physical Exam Vital Signs: Last Vital Signs Pulse 59 10/15/24 13:22 BP 140/90 H 10/15/24 13:22 Pulse Ox 97 10/15/24 13:22 Oxygen Delivery Method Room Air 10/15/24 13:22 Const General: cooperative, healthy appearing, comfortable, no acute distress and well developed Orientation/consciousness: patient oriented x3 Limitations: no limitations HEENT Head: Yes normal to inspection Ears: hearing grossly normal bilaterally General nose exam: Normal external nose present Face and sinus: Yes normal facial exam Eyes General: appearance normal, both eyes and all related structures Neck Neck: Yes normal visual inspection and Yes full ROM Resp Effort & Inspection: normal respiratory effort and able to speak in complete sentences Auscultation: clear to auscultation bilaterally Cardio Rate: regular rate Rhythm: regular rhythm Heart sounds: normal S1 and S2 Skin General skin exam: no rashes or lesions noted Neuro General: patient oriented x3 Extrem Other: Nonpitting bilateral lower extremity edema to the ankles. No edema noted otherwise. Assessment & Plan Assessment & Plan (1) Leg swelling: Code(s): M79.89 - Other specified soft tissue disorders Plan: Patient's symptoms resolve with leg elevation. No identified source at this time. He currently remains on diuretic therapy for blood pressure control, advised patient to follow up with his PCP for adjustment to this medication. Advised emergency room should he develop any difficulty with breathing, or sudden worsening in his symptoms including swallowing issues. Plan See above for full details and plan. Coding Level of Care Code Est Pt Level 3 (13935) Diagnoses Leg swelling M79.89
[2024-10-15 13:22] VITALS: BP 140/90; PULSE 59; O2SAT 97
== END 2024-10-15 14:26 | disposition home or self-care (01) ==
PROVIDERS: Visit Provider Registered Nurse
DX: M79.89 Other specified soft tissue disorders (principal)

== ENCOUNTER → 2024-10-15 12:23 | Outpatient (BNVA) | payer MEDICARE, MEDICAID, SELFPAY | PROVIDERS: Visit Provider Registered Nurse | DX: M79.89 Other specified soft tissue disorders (principal); R53.83 Other fatigue; I69.391 Dysphagia following cerebral infarction; R13.10 Dysphagia, unspecified | CPT/HCPCS: 99212 ==

== ENCOUNTER 2024-11-13 10:34 | Outpatient (REF) | payer MEDICARE, MEDICAID, SELFPAY ==
[2024-11-13 11:25] LABS: MANUAL DIFF FLAG NO
[2024-11-13 11:31] LABS: Basophils Absolute Auto 0.1 X10*3/uL (0.0-0.2); Basophils Percent Auto 0.7 % (0-2); Eosinophils Absolute Auto 0.2 X10*3/uL (0.0-0.4); Eosinophils Percent Auto 2.4 % (0-4); Hematocrit 42.7 % (42.0-52.0); Hemoglobin 14.7 g/dl (14.0-18.0); Imm Gran Abs Auto 0.01 X10*3/uL (0.00-0.03); Imm Gran Pct Auto 0.1 % (0.0-0.4); Lymphocytes Absolute Auto 3.9 X10*3/uL (1.2-4.9); Lymphocytes Percent Auto 57.7 % (20-40); Mean Corpuscular HGB Conc 34.4 g/dl (31.0-36.0); Mean Corpuscular Hemoglobin 31.2 pg (27.0-33.0); Mean Corpuscular Volume 90.7 fL (80.0-98.0); Mean Platelet Volume 9.5 fL (9.4-12.4); Monocytes Absolute Auto 0.5 X10*3/uL (0.1-1.2); Monocytes Percent Auto 7.9 % (2-11); Neutrophils Absolute Auto 2.1 x10*3/uL (2.0-8.3); Neutrophils Percent Auto 31.2 % (45-73); Platelet Count 236 X10*3/uL (160-400); Red Blood Count 4.71 X10*6/uL (4.60-5.80); Red Cell Distribution Width 13.6 % (11.0-16.0); White Blood Count 6.7 X10*3/uL (4.8-10.8)
[2024-11-13 11:54] LABS: Alanine Aminotransferase 38 U/L (0-40); Albumin Level 4.3 g/dL (3.5-5.0); Alkaline Phosphatase 66 U/L (39-117); Anion Gap 8 (12-20); Aspartate Amino Transferase 28 U/L (5-37); Bilirubin Total 0.4 mg/dL (0.0-1.0); Blood Urea Nitrogen 21 mg/dL (9-16); Calcium 9.5 mg/dL (8.4-10.2); Carbon Dioxide 29 mmol/L (22-29); Chloride 107 mmol/L (96-108); Estimated Glomerular Filt Rate 56; Glucose Random 137 mg/dL (60-115); Potassium 3.3 mmol/L (3.3-5.1); Sodium 141 mmol/L (135-145); Total Protein 8.1 g/dL (6.5-8.0)
[2024-11-16 17:03] LABS: TS Negative Control Passed; TS Panel A 0; TS Panel B 0; TS Positive Control Passed; TSpotTB Negative (Negative)
[2024-11-17 22:24] LABS: HIV RNA PCR Qn Copies 431 Copies/mL; HIV RNA PCR Qn Log Copies 2.63 Log cps/mL
[2024-11-18 13:53] LABS: Absolute CD3 Count 3015 cells/uL (840-3060); Absolute CD4 Count 927 cells/uL (490-1740); Absolute CD8 Count 2106 cells/uL (180-1170); Absolute Lymphocytes 3778 cells/uL (850-3900); CD4 CD8 Ratio 0.44 (0.86-5.00); Percent CD3 Cells 80 % (57-85); Percent CD4 Cells 25 % (30-61); Percent CD8 Cells 56 % (12-42)
[2024-11-27 01:39] LABS: HIV Genotype DETECTED
== END 2024-11-13 10:35 | disposition home or self-care (01) ==
LOC: HO.HHCL 10:34
PROVIDERS: Visit Provider Internal Medicine
DX: B20 Human immunodeficiency virus [HIV] disease (principal)
CPT/HCPCS: 36415; 80053; 85025; 86359; 86360; 86481; 87536; 87900

== ENCOUNTER 2024-12-16 09:54 | Outpatient (REF) | payer MEDICARE, MEDICAID, SELFPAY ==
--- OUTSIDE RECORDS SUMMARY | 2024-12-16 10:19 | XMS_ITS ---
Author Organization [facility] Address [address] [place] [address] Care Team Providers Care Manager City Name Role Phone Ashlee Schilling MD Primary Care Provider Marni vailable Keya Cruz Unavailable [phone] REASON FOR VISIT buy [employer] Encounters Encounter Location Date Provider Diagnosis [address] [address] 08/25/2024 Keya Cruz Plan Of Treatment Next Appt Details Provider Name:Keya vallejo, 02/16/2025 04:00:00 PM, [address] [place], [address], Progress Notes * Billy FAYDOB:[birth year] (68 yo M)Acc No.[id number]:08/25/2024 Patient:?Billy Fay :1955???Age:68 Y???Sex:Male Address:[address], [place], [address] * true * Date:? Generated for Printi bo/Vivien/eTransmitting on:?12/16/2024 10:18 AM EST
--- OUTSIDE RECORDS SUMMARY | 2024-12-16 10:19 | XMS_ITS | Patient Health Record ---
[facility] Wiley Address [address] [facility] [place] [address] Care Team Providers Care Assistant Superintendent For Curriculum Name Role Phone Ashlee Schilling MD Primary Care Provider Marni Keya Purcell Unavailable [phone] Allergies No Known Allergies Reason For Referral No Information Medications Medication SIG (Take, Route, Frequency, Duration) Notes Start Date End Date Status Losartan Potassium 50 MG Oral for 30 Days Active Chlorthalidone 25 MG Oral for 90 Days Active Biktarvy 50-200-25 MG Oral for 30 Days Active Aspirin 325 MG TAKE 1 TABLET BY VASQUEZ TH ONCE DAILY Oral for 90 Days Active Atorvastatin Calcium 20 MG TAKE 1 TABLET BY MOUTH EVERY DAY Oral for 30 Days Active Social History Tobacco Use: Social History Observation Description Date Details (start date - stop date) Never Smoker NA - NA Tobacco use other than smoking: Question Answer Notes Are you an other tobacco user? No Tobacco Control (Standard) Question Answer Notes Tobacco use: Nonsmoker Additional Findings: Tobacco non-user Current no nsmoker AUDIT-C (Standard) Question Answer Notes Did you have a drink containing alcohol in the p ast year? No Points 0 Interpretation Negative Problems Problem Type SNOMED Code ICD Code Onset Dates Problem Status W/U Status Risk Notes Problem Plantar fibromatosis (46613616) 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 Vital Signs Heart Rate 66 /min 11/24/2024 Blood pressure diastolic 80 mm Hg 11/24/2024 Height 6ft in 11/24/2024 Blood pressure systolic 127 mm Hg 11/24/2024 Weight 210 lbs 11/24/2024 BMI 28.48 kg/m2 11/24/2024 Encounters Encounter Location Date Provider Diagnosis [address] [address] 08/25/2024 Keya Cruz Plantar fibromatosis M72.2 ; Posterior tibial tendinitis, left leg M76.822 ; Onychomycosis B35.1 ; Pain in right toe(s) M79.674 ; Pain in left toe(s) M79.675 ; 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 and Posterior tibial tendinitis, right leg M76.[address] [address] 11/24/2024 Keya Cruz Posterior tibial tendinitis, left leg M76.822 ; Xerosis of skin L85.3 ; Onychomycosis B35.1 ; Pain in right toe(s) M79.674 ; Pain in left toe(s) M79.675 and Posterior tibial tendinitis, right leg M76.[address] [address] 08/25/2024 Keya Cruz [address] [address] 11/24/2024 Keya Cruz Assessments Encounter Date Diagnosis (ICD Code) Assessment Notes Treatment Notes Treatment Clinical Notes Section Notes 08/25/2024 Posterior tibial tendinitis, left leg (ICD-10 - M76.822) 08/25/2024 Plantar fibromatosis (ICD-10 - M72.2) 11/24/2024 Posterior tibial tendinitis, left leg (ICD-10 - M76.822) 11/24/2024 Xerosis of skin (ICD-10 - L85.3) 11/24/2024 Onychomycosis (ICD-10 - B35.1) 08/25/2024 Onychomycosis (ICD-10 - B35.1) 08/25/2024 Pain in right toe(s) (ICD-10 - M79.674) 11/24/2024 Pain in right toe(s) (ICD-10 - M79.674) 11/24/2024 Pain in left toe(s) (ICD-10 - M79.675) 08/25/2024 Pain in left toe(s) (ICD-10 - M79.675) 08/25/2024 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.22) 11/24/2024 Posterior tibial tendinitis, right leg (ICD-10 - M76.821) 08/25/2024 Posterior tibial tendinitis, right leg (ICD-10 - M76.821) Plan Of Treatment Next Appt Details Provider Name:Keya vallejo, 02/16/2025 04:00:00 PM, [address] [place] [address], [phone], Insurance Providers Payer Name Payer Address Payer Phone Subscriber Number Group Number Insured Name Patient Relationship to Insured Coverage Start Date Coverage End Date Medicare National [employer] [address] [place] [address] [id number] Billy Elaine Self - patient is the insured Medical (General) History Medical History History ICD Code Back,Hip,and Knee pain CAD (Cholesterol) High blood pressure Sciatica Measles HIV Surgical History Surgery Date(Month/Year) hand- cysts 1996
--- OUTSIDE RECORDS SUMMARY | 2024-12-16 10:19 | XMS_ITS ---
Author Organization [facility] Address [address] [place] [address] Care Team Providers Care Specification Manager Name Role Phone Ashlee Schilling MD Primary Care Provider Marni vailable Keya Cruz Unavailable [phone] REASON FOR VISIT buy pedUncovet sport #44 Encounters Encounter Location Date Provider Diagnosis [facility] [address] [place] [address] 11/24/2024 Keya Cruz Plan Of Treatment Next Appt Details Provider Name:Keya vallejo, 02/16/2025 04:00:00 PM, [address] [place], [address], Progress Notes * Billy FAYDOB:[birth year] (69 yo M)Acc No.[id number]:11/24/2024 Patient:?Billy FAY :1955???Age:69 Y???Sex:Male Address:[address], [place], [address] * true * Date:? Generated for Printi bo/Vivien/eTransmitting on:?12/16/2024 10:19 AM EST
--- OUTSIDE RECORDS SUMMARY | 2024-12-16 10:19 | XMS_ITS ---
Author Organization [facility] Address [address] [place] [address] Care Team Providers Care Client Solutions Specialist Name Role Phone Ashlee Schilling MD Primary Care Provider Marni vailaKeya Malone Unavailable [phone] Allergies No Known Allergies REASON FOR VISIT Painful nail(s) aggravated by shoes causing difficulty standing/walking, Skin Problem, Foot pain Medications Medication SIG (Take, Route, Frequency, Duration) [...] ast year? No Points 0 Interpretation Negative Vital Signs Height 6ft in 11/24/2024 Weight 210 lbs 11/24/2024 BMI 28.48 kg/m2 11/24/2024 Blood pressure systolic 127 mm Hg 11/24/19 25 Blood pressure diastolic 80 mm Hg 025 Heart Rate 66 /min 11/24/2024 Encounters Encounter Location Date Provider Diagnosis [facility] [address] [place] [address] 11/24/2024 Keya Cruz Posterior tibial tendinitis, left leg M76.822 ; Xerosis of skin L85.3 ; Onychomycosis B35.1 ; Pain in right toe(s) M79.674 ; Pain in left toe(s) M79.675 and Posterior tibial tendinitis, right leg M76.821 Assessments Encounter Date Diagnosis (ICD Code) Assessment Notes Treatment Notes Treatment Clinical Notes Section Notes 11/24/2024 Posterior tibial tendinitis, left leg (ICD-10 - M76.822) 11/24/2024 Xerosis of skin (ICD-10 - L85.3) 11/24/2024 Onychomycosis (ICD-10 - B35.1) 11/24/2024 Pain in right toe(s) (ICD-10 - M79.674) 11/24/2024 Pain in left toe(s) (ICD-10 - M79.675) 11/24/2024 Posterior tibial tendinitis, right leg (ICD-10 - M76.821) Plan Of Treatment Next Appt Details Follow Up: 2 Months, Reason: Provider Name:Keya vallejo, 02/16/2025 04:00:00 PM, [address] [place] [address], [phone], Procedure Notes * Category Sub-Category Detail Notes Debride Nail 6-10 Nail debridement Due to the cl inical pathology outlined in the exam findings, performance of this nail treatment is medically necessary as its management by an unskilled/untrained nonprofessional would put this patients foot and overall health at risk. Therefore, debridement to affected nail(s), as described in exam (TA, T1, T2, T3, T4, T5, T6, T7, T8, T9, ), was performed exclusively by the physician of record to reduce/remove overall nail length, girth, thickness, subungual debris, and necrotic tissue, by manual and/or electrical means through the use of a nail nipper and/or dremel-type edge grinder machine, to a more viable healthy nail plate or bed tissue 6-10 nails in total. Silver nitrate was used for any petechial bleeding as necessary. Definitive antifungal treatment options, both pharmaceutical and surgical, have been reviewed and discussed with the patient. The patient solely prefers the use of intermittent/as needed professional debridement services for their nail condition and understands the need for additional periodic treatments to maintain effectiveness in symptomatic relief - 19997 Progress Notes * Billy FAYDOB:[birth year] (69 yo M)Acc No.[id number]:11/24/2024 Progress Note Patient:?Billy FAY Provider:?Keya Cruz DPM :1955???Age:69 Y???Sex:Male Westley e:11/24/2024 Address:[address] [place] [address], [place] , [place] [facility] Pcp:Ashlee Schilling MD Subjective: * Chief Complaints: * ???Painful nail(s) aggravate d by shoes causing difficulty standing/walkingSkin ProblemFoot pain * HPI: ???Painful Nails:?Pt States Last PCP Visit:?Date:?11/19/2024 ???Skin problems:?Nature:?dryness, scaling.?Location:?B/L.?Aggravated by:?any pressure , standing , walking.?Foot Pain:?Nature:?, aching , tenderness.?Location:?, B/L.?Duration:?several years.?Onset:?gradual , genetic.?Course:?improved.?Aggravated:?any pressure, standing, walking.?Treatments:?rest/alter normal daily activity , innersoles from Dr Valle; Frankie innersoles help.? * ROS:?General/Constitutional:?Nausea?denies.?Vomiting?denies.?Hunger Thirst?denies.?Loss appetite?denies.?Chills?denies.?Fatigue?denies.?Fever?denies.?Night Sweats?denies.?Unexplained weight loss?denies.?Unexplained weight gain?denies.?HEENTM:?Dentures?admits .?Dizziness?denies.?Glasses/contacts?admits .?Retinopathy?denies.?Blurred/double vision?denies.?TMJ?denies.?Discharge/drainage?denies.?Implants?denies.?Sore throat?denies.?Dental implants?denies.?Hard of hearing ?denies.?Difficulty chewing/swallowing/speaking?denies.?Nose bleeds?denies.?Sore mouth?denies.?Respiratory:?On Oxygen?denies.?Pneumonia/pleurisy?denies.?Bronchitis?denies.?Emphysema?denies.?C oughing?denies.?Cough blood?denies.?Shortness of breath?denies.?Wheezing?denies.?Cardiovascular:?Pacemaker?denies.?MVP?denies.?WPW?denies.?CHF?denies.?Heart attack?denies.?Septal defect?denies.?Rapid beat?denies.?Chest pain ?denies.?Atrial Fib.?denies.?Murmur/Palpitations?denies.?Gastrointestinal:?Hemorrhoids?denies.?Stomach/Abdominal pain?denies.?Dark blood stool?denies.?Irritable bowel ?denies.?Constipation?denies.?Diarrhea?denies.?Hematology:?Swelling?denies.?Clots?denies.?Varicose Veins?denies.?Bruising?denies.?Bleeding problem?denies.?Genitourinary:?Blood urine?denies.?Frequent/Painfu/urination/bladder control?denies.?Kidney stones?denies.?Infection (UTI)?denies.?Nephropathy?denies.?sex trans dis (STD)?denies.?Prostate?denies.?Musculoskeletal:?Hammertoes?denies.?Bunions?denies.?Back Pain?denies.?Muscle Cramps/ Resting?denies.?Muscle cramps / walking?denies.?Generalized aches and pains?denies.?Weakness?denies.?Integ.:?Quintero?denies.?Scars?denies.?Corns/calluses?denies.?Ingrown nails?denies.?Painful nails?denies.?Open Sores?denies.?Rashes?denies.?Neurologic:?Difficulty sleeping?denies.?Brain disorder?denies.?Numbness?admits.?Balance trouble?denies.?Confusion?denies.?Fainting/blackouts?denies.?Tingling?denies.?Tr emors?denies.? * Medical History:? * Surgical History:?hand- cyst s 1996 * Hospitalization/Major Diagno stic Procedure:?Denies Past Hospitalization * Family History:?Mother: dece ased, stoke.?Father: .? * Social History:?Tobacco Use:?Tobacco use other than smoking?Are you an other tobacco user??No ?Tobacco Control (Standard)?Tobacco use:?Nonsmoker ?Additional Findings: Tobacco non-user?Current nonsmoker ???Drugs/Alcohol:?Drugs?Have you used drugs other than those for medical reasons in the past 12 months??No ???Miscellaneous:?Caffeine: yes, frequency:, 2-3 cups per day. ?Children: yes. ?Exercise: no. ?Marital status: single. ?Occupation: Retired. ???Drug/Alcohol:?AUDIT-C (Standard)?Did you have a drink containing alcohol in the past year??No ?Points?0 ?Interpretation?Negative * Medications:?TakingAtorvasta tin Calcium 20 MG Tablet TAKE 1 TABLET BY MOUTH EVERY DAY Oral Biktarvy 50-200-25 MG Tablet Oral Aspirin 325 MG Tablet Delayed Release TAKE 1 TABLET BY MOUTH ONCE DAILY Oral Losartan Potassium 50 MG Tablet Oral Chlorthalidone 25 MG Tablet Oral Medication List reviewed and reconciled with the patientTaking Atorvastatin Calcium 20 MG Tablet TAKE 1 TABLET BY MOUTH EVERY DAY Oral Taking Biktarvy 50-200-25 MG Tablet Oral Taking Aspirin 325 MG Tablet Delayed Release TAKE 1 TABLET BY MOUTH ONCE DAILY Oral Taking Losartan Potassium 50 MG Tablet Oral Taking Chlorthalidone 25 MG Tablet Oral Medication List reviewed and reconciled with the patient * Allergies:?N.K.D.A.yes[Aller gies Verified] Objective: * Vitals:?Ht: 6ft, Wt:210, BMI :28.48, Shoe size: 10.5, BP:127/80mm Hg, HR:66/min, Ht-cm: 182.88 cm, Wt-k.26 kg. * Examination: ???Nails: ?NAILS are:?Elongated, overgrown, dystrophic, lytic, greater than 3mm thick, discolored and friable with crumbly malodorous subungual debris, with pain on palpation , TA, T1, T2, T3, T4, T5, T6, T7, T8, T9.?General Examination: ?GENERAL APPEARANCE:?Reveals a pleasant, alert, well-nourished, well- developed, well hydrated individual, who demonstrates proper attention to hygiene/body habitus, and is in no acute distress, Pt serves as own?historian for office visit today.?ORIENTED:?person, place, and time.?Neurological: ?SENSORY:?Neurological exam reveals intact sensorium, pain sensation normal, vibration sensation intact, pinprick sensation is normal in the lower extremities, Pt denies, anesthesia, burning, paresthesia, tingling, B/L.?Vascular: ?DP PULSES (B):?3/4, B/L.?PT PULSES (B):?3/4, B/L.?CAPILLARY FILL TIME:?immediate, all digits, B/L.?TROPHIC CONDITION-TEXTURE/ELASTICITY/TURGOR/HAIR GROWTH (B):?normal, B/L.?TEMPERTURE GRADIENT (C):?warm to cool, proximal to distal, B/L.?PIGMENTATION:?normal, B/L.?EDEMA (C):?absent, B/L.?Dermatologic: ?SKIN FINDINGS:?Skin shows sign(s) of, dryness, scaling, in a stocking fashion, no fissure(s) present, B/L.?Orthopedic: ?MUSCLE STRENGTH:?5/5 all groups in a symmetrical fashion , B/L.?GAIT ABNORMALITY:?Pronated , abducted angle and base of gate.?FOOT MORPHOLOGY:?B/L , Pes Planus structure , Semi-rigid.?BUNION:?Medially prominent 1st MPJ , B/L , Lateral tracking 1st MPJ incompletely reducible.? Assessment: * Assessment: 1.?Posterior tibial tendinit is, left leg - M76.822???2.?Xerosis of skin - L85.3 (Primary)???Specify :Acute problem, Uncomplicated (3),Rx Management (4)???3.?Onychomycosis - B35.1???4.?Pain in right toe(s) - M79.674???5.?Pain in left toe(s) - M79.675???6.?Posterior tibial tendinitis, right leg - M76.821??? Plan: * Treatment: * Procedures:?Debride Nail 6-10:?Nail debridement?Due to the clinical pathology outlined in the exam findings, performance of this nail treatment is medically necessary as its management by an unskilled/untrained nonprofessional would put this patients foot and overall health at risk. Therefore, debridement to affected nail(s), as described in exam (TA, T1, T2, T3, T4, T5, T6, T7, T8, T9, ), was performed exclusively by the physician of record to reduce/remove overall nail length, girth, thickness, subungual debris, and necrotic tissue, by manual and/or electrical means through the use of a nail nipper and/or dremel-type edge grinder machine, to a more viable healthy nail plate or bed tissue 6- 10 nails in total. Silver nitrate was used for any petechial bleeding as necessary. Definitive antifungal treatment options, both pharmaceutical and surgical, have been reviewed and discussed with the patient. The patient solely prefers the use of intermittent/as needed professional debridement services for their nail condition and understands the need for additional periodic treatments to maintain effectiveness in symptomatic relief - [address].? * Procedure Codes:?85660 DEBRI DE NAIL, 6 OR MORE * Preventive Medicine:? ??Counseling:?Discussion:?-13: Office or other outpatient visit for the evaluation and management of an established patient, which required a medically appropriate history and/or examination and LOW level of DECISION MAKING for: 1 STABLE ACUTE UNCOMPLICATED PROBLEM, 2 OR MORE MINOR PROBLEMS, OR 1 STABLE CHRONIC PROBLEM, THAT POSE(S) A LOW RISK FOR MORBIDITY/MORTALITY. The visit on the day of the encounter encompassed interpreting the data and educating the patient as to the nature of their condition, treatment options available according to their individual PMH, meds, allergies, and overall health/living conditions, as well as any potential risks or complications that may occur from a failure to adhere to, and participate in, the recommended course of therapy. The discussion included a complete verbal, and/or written explanation of the examination results, any x-rays taken, the proposed diagnosis, and outline of the treatment plan. A schedule for future care needs was also explained. The patient verbalized an understanding of the instructions at this time and agreed to be an active participant in their treatment. If the patient should think of any questions or concerns after the visit, I have encouraged the patient to call the office.?BioMech.:?I discussed the Pts foot biomechanics with them and how it relates to their problem.?Xerosis:?The patient was counseled on the diagnosis, potential etiologies, and treatment options for their skin condition. We discussed the risks and benefits of each option from performing no treatment, to utilizing OTC topical skin creams/ointments, to utilizing prescription topical creams/ointments, to utilizing customized compounded topical medications and use of nocturnal occlusion with any/all previously detailed therapies. We discussed the advantages and disadvantages of each possible treatment and importance for adherence to all the recommended therapies for optimum success and avoid potential complications such as open sore/infection/possible hospitalization. We discussed the potential effectiveness of each topical preparation as well as each ones possible side effects and/or patient medication interactions. Patient questions re: use, dosage, successful outcomes, and application consistency were reviewed and the patient verbalized that all answers were clearly understood, Recom Eucerin or Cerave OTC as directed twice daily.? ??Screening/Special Tests:?Fall Risk?Screening:?No falls in the past year ?FALLS: Screening for Future Fall Risk?Have you had any falls with injury in the past year??No * Follow Up:?2 Months * Images: * Sign off status: Completed true * Provider:?Keya Cruz DPM Date:? Generated for Ernesto soriano/Vivien/eTransmitting on:?12/16/2024 10:19 AM EST History and Physical Notes * HPI (History of Present Illness) Category Sub-Category Detail Notes Category Not es Painful Nails Pt States Last PCP Visit: Date:: 11/19/2024 Skin problems Nature: dryness, scaling Location: B/L Aggravated by: any pressure , stand ing , walking Foot Pain Nature: , aching , tenderness Location: , B/L Duration: several years Onset: gradual , genetic Course: improved Aggravated: any pressure, standi ng, walking Treatments: rest/alter normal da jasmyn activity , innersoles from Dr Valle; Pedag innersoles help Examination Category Sub-Category Detail Notes Category Not es Neurological SENSORY: Neurological exa m reveals intact sensorium, pain sensation normal, vibration sensation intact, pinprick sensation is normal in the lower extremities, Pt denies, anesthesia, burning, paresthesia, tingling, B/L Dermatologic SKIN FINDINGS: Skin shows sign( s) of, dryness, scaling, in a stocking fashion, no fissure(s) present, B/L Orthopedic GAIT ABNORMALITY: Pronated , abd ucted angle and base of gate FOOT MORPHOLOGY: B/L , Pes Planus str ucture , Semi-rigid BUNION: Medially prominent 1 st MPJ , B/L , Lateral tracking 1st MPJ incompletely reducible MUSCLE STRENGTH: 5/5 all groups in a symmetrical fashion , B/L General Examination GENERAL APPEARANCE: Reveals a pleasant, alert, well- nourished, well-developed, well hydrated individual, who demonstrates proper attention to hygiene/body habitus, and is in no acute distress, Pt serves as own historian for office visit today ORIENTED: person, place, and t chidi Vascular DP PULSES (B): 3/4, B/L PT PULSES (B): 3/4, B/L CAPILLARY FILL TIME: immediate, all digi ts, B/L TEMPERTURE GRADIENT (C): warm to cool, p roximal to distal, B/L TROPHIC CONDITION-TEXTURE/ELASTICITY/TURGOR/HAIR GROWTH (B): normal, B/L EDEMA (C): absent, B/L PIGMENTATION: normal, B/L Nails NAILS are: Elongated, overg rown, dystrophic, lytic, greater than 3mm thick, discolored and friable with crumbly malodorous subungual debris, with pain on palpation , TA, T1, T2, T3, T4, T5, T6, T7, T8, T9
[2024-12-16 13:51] LABS: Estimated Average Glucose 131 mg/dL; Hemoglobin A1C 148.9051 umol/L; Hemoglobin A1c % 6.2 % (<6.0); Total Hemoglobin (HGBA1C) 3404.9939 umol/L
[2024-12-16 13:53] LABS: Alanine Aminotransferase 62 U/L (0-40); Alkaline Phosphatase 71 U/L (39-117); Anion Gap 11 (12-20); Aspartate Amino Transferase 47 U/L (5-37); Bilirubin Total 0.3 mg/dL (0.0-1.0); Blood Urea Nitrogen 15 mg/dL (9-16); Calcium 8.8 mg/dL (8.4-10.2); Carbon Dioxide 28 mmol/L (22-29); Chloride 107 mmol/L (96-108); Cholesterol 123 mg/dL (<200); Estimated Glomerular Filt Rate > 60; Glucose Random 166 mg/dL (60-115); HDL Cholesterol 39 mg/dL (>40); LDL Cholesterol Calculated 57 mg/dL (<100); Potassium 3.9 mmol/L (3.3-5.1); Sodium 142 mmol/L (135-145); Total Protein 7.4 g/dL (6.5-8.0); Triglycerides 137 mg/dL (<150)
[2024-12-16 14:13] LABS: Prostate Specific Antigen Scr 0.88 ng/mL (<0.05-4.0)
== END 2024-12-16 09:55 | disposition home or self-care (01) ==
LOC: HO.HMGCLDS 09:54
PROVIDERS: Nurse Practitioner Family; PCP Family Medicine; Visit Provider Hospitalist
DX: Z00.00 Encounter for general adult medical examination without abnormal findings (principal); N17.9 Acute kidney failure, unspecified; Z12.5 Encounter for screening for malignant neoplasm of prostate; Z13.6 Encounter for screening for cardiovascular disorders; Z13.1 Encounter for screening for diabetes mellitus
CPT/HCPCS: 36415; 80053; 80061; 83036; 84153

== ENCOUNTER 2025-01-08 16:05 | Outpatient (REF) | payer MEDICARE, MEDICAID, SELFPAY ==
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
--- OUTSIDE RECORDS SUMMARY | 2025-01-08 16:49 | XMS_ITS ---
Author Organization [facility] Address [address] [place] [address] Care Team Providers Care Crop Pest Control Specialist Name Role Phone Ashlee Schilling MD Primary Care Provider Marni vailable Keya Cruz Unavailable [phone] REASON FOR VISIT rt middle toe Encounters Encounter Location Date Provider Diagnosis [address] [address] 01/04/2025 Keya Cruz Plan Of Treatment Next Appt Details Provider Name:Keya vallejo, 02/16/2025 04:00:00 PM, [address] [place] [address], [phone], Progress Notes * Billy FAYDOB:[birth year] (69 yo M)Acc No.[id number]:01/04/2025 Patient:?Billy FAY :1955???Age:69 Y???Sex:Male Address: [address] [place], [place], [address] * true * Date:? Generated for Printi ng/Farenitag/eTransmitting on:?01/08/2025 04:49 PM EDT
--- OUTSIDE RECORDS SUMMARY | 2025-01-08 16:49 | XMS_ITS ---
Author Organization [facility] Address [address] [place] [address] Care Team Providers Care Marketing Programs Manager Name Role Phone Ashlee Schilling MD Primary Care Provider Marni vailable Keya Cruz Unavailable [phone] REASON FOR VISIT buy pedBroccol-e-games sport #44 Encounters Encounter Location Date Provider Diagnosis [address] [address] 11/24/2024 Keya Cruz Plan Of Treatment Next Appt Details Provider Name:Keay vallejo, 02/16/2025 04:00:00 PM, [address] [place], [address], Progress Notes * Billy FAYDOB:[birth year] (69 yo M)Acc No.[id number]:11/24/2024 Patient:?iBlly FAY :1955???Age:69 Y???Sex:Male Address:[address] [place], [place], [address] * true * Date:? Generated for Printi bo/Farenitag/eTransmitting on:?01/08/2025 04:48 PM EDT
--- OUTSIDE RECORDS SUMMARY | 2025-01-08 16:49 | XMS_ITS | Patient Health Record ---
Author Organization [facility] Address [address] [facility] [place] [address] Care Team Providers Care Dietetic Technician Name Role Phone Ashlee Schilling MD Primary Care Provider Marni Keya Purcell Unavailable [phone] Noah De La Rosa Unavailable [phone] Allergies No Known Allergies Reason For Referral No Information Medications Medication SIG (Take, Route, Frequency, Duration) Notes Start Date End Date Status Chlorthalidone 25 MG Oral for 90 Days Active Atorvastatin Calcium 20 MG TAKE 1 TABLET BY MOUTH EVERY DAY Oral for 30 Days Active Biktarvy 50-200-25 MG Oral for 30 Days Active Amoxicillin 125 MG as directed Orally Active Aspirin 325 MG TAKE 1 TABLET BY VASQUEZ TH ONCE DAILY Oral for 90 Days Active Losartan Potassium 50 MG Oral for 30 Days Active Social [...] W/U Status Risk Notes Problem Plantar fibromatosis (89313526) 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 Vital Signs Heart Rate 66 /min 11/24/2024 Blood pressure diastolic 80 mm Hg 01/05/2025 Height 6ft in 01/05/2025 Blood pressure systolic 120 mm Hg 01/05/2025 Weight 210 lbs 01/05/2025 BMI 28.48 kg/m2 01/05/2025 Procedures Procedure Date Ordered Date Performed Result Body Sit e 79337- I&D ABSCESS-COMPLICATED,MULTI 01/05/2025 N/A Encounters Encounter Location Date Provider Diagnosis [address] [address] 08/25/2024 Keya Cruz Plantar fibromatosis M72.2 ; Posterior tibial tendinitis, left leg M76.822 ; Onychomycosis B35.1 ; Pain in right toe(s) M79.674 ; Pain in left toe(s) M79.675 ; 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 and Posterior tibial tendinitis, right leg M76.[address] [address] 11/24/2024 Keya Cruz Posterior tibial tendinitis, left leg M76.822 ; Xerosis of skin L85.3 ; Onychomycosis B35.1 ; Pain in right toe(s) M79.674 ; Pain in left toe(s) M79.675 and Posterior tibial tendinitis, right leg M76.[address] [address] 01/05/2025 Noah Estrella Abscess of toe of right foot L02.[address] [address] 08/25/2024 Keya Cruz [address] [address] 11/24/2024 Keya Cruz [address] [address] 01/04/2025 Keya Cruz Assessments Encounter Date Diagnosis (ICD Code) Assessment Notes Treatment Notes Treatment Clinical Notes Section Notes 08/25/2024 Posterior tibial tendinitis, left leg (ICD-10 - M76.822) 08/25/2024 Plantar fibromatosis (ICD-10 - M72.2) 11/24/2024 Posterior tibial tendinitis, left leg (ICD-10 - M76.822) 11/24/2024 Xerosis of skin (ICD-10 - L85.3) 11/24/2024 Onychomycosis (ICD-10 - B35.1) 01/05/2025 Abscess of toe of right foot (ICD-10 - L02.611) Patient Educated with: WOUND CARE INSTRUCTIONS.p df (WOUND CARE INSTRUCTIONS.p df) 08/25/2024 Onychomycosis (ICD-10 - B35.1) 08/25/2024 Pain [...] tibial tendinitis, right leg (ICD-10 - M76.821) 01/05/2025 Other Plan Of Treatment Pending Test Test Name Order Date 89885- I&D ABSCESS-COMPLICATED,MULTI 08/2025 Next Appt Details Provider Name:Keya vallejo, 02/16/2025 04:00:00 PM, [address] [place] [address], [place], [address], Insurance Providers Payer Name Payer Address Payer Phone Subscriber Number Group Number Insured Name Patient Relationship to Insured Coverage Start Date Coverage End Date Medicare [facility] [address] [place] [address] [phone] [id number] Billy Elaine Self - patient is the insured Medical (General) History Medical History History ICD Code Back,Hip,and Knee pain CAD (Cholesterol) High blood pressure Sciatica Measles HIV Surgical History Surgery Date(Month/Year) hand- cysts 1996
[2025-01-08 18:14] LABS: Alanine Aminotransferase 34 U/L (0-40); Albumin Level 4.1 g/dL (3.5-5.0); Alkaline Phosphatase 75 U/L (39-117); Anion Gap 12 (12-20); Aspartate Amino Transferase 30 U/L (5-37); Bilirubin Direct 0.2 mg/dL (0.0-0.5); Bilirubin Total 0.6 mg/dL (0.0-1.0); Blood Urea Nitrogen 17 mg/dL (9-16); Calcium 8.7 mg/dL (8.4-10.2); Carbon Dioxide 24 mmol/L (22-29); Chloride 110 mmol/L (96-108); Cholesterol 111 mg/dL (<200); Estimated Glomerular Filt Rate > 60; Glucose Random 149 mg/dL (60-115); HDL Cholesterol 45 mg/dL (>40); LDL Cholesterol Calculated 42 mg/dL (<100); Potassium 3.7 mmol/L (3.3-5.1); Sodium 142 mmol/L (135-145); Total Protein 7.9 g/dL (6.5-8.0); Triglycerides 120 mg/dL (<150)
[2025-01-09 04:43] LABS: ~HepC Num1 2.75 S/CO (0.00-0.79); ~Hepatitis C Antibody Reactive (Nonreactive)
[2025-01-11 15:38] LABS: HIV RNA PCR Qn Copies NOT DETECTED copies/mL (NOT DETECTED); HIV RNA PCR Qn Log Copies NOT DETECTED (NOT DETECTED)
[2025-01-12 15:09] LABS: HCV Log PCR <1.18 NOT DETECTED Log IU/mL (NOT DETECTED); HepC Viral Load <15 NOT DETECTED IU/mL (NOT DETECTED)
[2025-01-12 15:43] LABS: Absolute CD4 Count 705 cells/uL (490-1740); Absolute CD8 Count 1366 cells/uL (180-1170); Absolute Lymphocytes 2557 cells/uL (850-3900); CD4 CD8 Ratio 0.52 (0.86-5.00); Percent CD4 Cells 28 % (30-61); Percent CD8 Cells 53 % (12-42)
== END 2025-01-08 16:06 | disposition home or self-care (01) ==
LOC: HO.HHCL 16:05
PROVIDERS: Visit Provider Family Medicine
DX: Z21 Asymptomatic human immunodeficiency virus [HIV] infection status (principal); Z11.59 Encounter for screening for other viral diseases; I63.50 Cerebral infarction due to unspecified occlusion or stenosis of unspecified cerebral artery; I10 Essential (primary) hypertension
CPT/HCPCS: 36415; 80048; 80061; 80076; 86360; 86803; 87522; 87536

== ENCOUNTER 2025-02-24 13:13 | Outpatient (REF) | payer MEDICARE, MEDICAID, SELFPAY ==
--- NOTE | ~2025-02-24 | MM_ITS ---
EXAMINATION: DXA BONE DENSITY AXIAL HISTORY: Q79.9 TECHNIQUE: [employer] Dual energy absorptiometry (DEXA) of the lumbar spine, total left hip, and femoral neck was performed. COMPARISON: There are no prior studies for comparison. FINDINGS: The bone mineral density of the lumbar spine is 1.603 with a T-score of 3.2, and a Z-score of 2.5. This is indicative of normal bone mineral density. The bone mineral density of the left total hip is 1.166 with a T-score of 0.4, and a Z-score of -0.1. This is indicative of normal bone mineral density. The bone mineral density of the left femoral neck is 1.131 with a T-score of 0.5, and a Z-score of 0.3. This is indicative of normal bone mineral density. MM/XR DEXA axial skeleton IMPRESSION: Based on bone mineral density, and according to World Health Organization (WHO) criteria, the diagnosis is consistent with normal bone mineral density. All bone density values are in grams per centimeter squared (g/cm2). Statistically, 68% of repeat scans fall within 1 SD (+/- 0.010 g/cm2 for AP spine L1-L4) and 1 SD (+/- 0.012 g/cm2 for femur total) FRAX is a trademark of the [employer]'s [place] [facility] Metabolic Bone Disease, a World Health Organization (WHO) Collaborating Center. Electronically signed by: Ignacio Benavides MD 02/24/2025 02:55 PM EDT
--- OUTSIDE RECORDS SUMMARY | 2025-02-24 14:32 | XMS_ITS ---
Author Organization [facility] Address [address] [place] [address] Care Team Providers Care Cloth Washer Operator Name Role Phone Ashlee Schilling MD Primary Care Provider Marni vailable Keya Cruz Unavailable [phone] REASON FOR VISIT looking for a sooner apt Encounters Encounter Location Date Provider Diagnosis [facility] [address] [place] [address] 02/01/2025 Keya Cruz Plan Of Treatment Next Appt Details Provider Name:Keya vallejo, 05/18/2025 04:00:00 PM, [address] [place], [address], Progress Notes * Billy FAYDOB:[birth year] (69 yo M)Acc No.[id number]:02/01/2025 Patient:?Billy FAY :1955???Age:69 Y???Sex:Male Address:[address], [place], [address] * true * Date:? Generated for Printi ng/Farenitag/eTransmitting on:?02/24/2025 02:31 PM EDT
--- OUTSIDE RECORDS SUMMARY | 2025-02-24 14:32 | XMS_ITS ---
[facility] Address [address] [facility] [place] [address] Care Team Providers Care Risk And Compliance Analytics Director Name Role Phone Ashlee Schilling MD Primary Care Provider Marni vailaKeya Malone Unavailable [phone] Allergies No Known Allergies REASON FOR VISIT Painful nail(s) aggravated by shoes causing difficulty standing/walking, Open sore - Toe Medications Medication SIG (Take, Route, Frequency, Duration) Notes Start Date End Date Status amLODIPine Besylate 5 MG Oral for 90 Days Active Chlorthalidone 25 MG Oral for 90 Days Active Biktarvy 50-200-25 MG Oral for 30 Days Active Amoxicillin 125 MG as directed Orally Active Atorvastatin Calcium 20 MG TAKE 1 TABLET BY MOUTH EVERY DAY Oral for 30 Days Active Losartan Potassium 50 MG Oral for 30 Days Active Aspirin 81 MG 1 tablet Orally Once a day for 90 days Active Social History Tobacco Use: Social History Observation Description Date Details (start date - stop date) Never Smoker NA - NA Tobacco use other than smoking: Question Answer Notes Are you an other tobacco user? No Tobacco Control (Standard) Question Answer Notes Tobacco use: Nonsmoker Additional Findings: Tobacco non-user Current no nsmoker Problems Problem Type SNOMED Code ICD Code Onset Dates Problem Status W/U Status Risk Notes Problem Ulcer of toe of right foot (disorder) ([id number]) Skin ulcer of toe of right foot, limited to breakdown of skin (L97.511) Active confirmed Vital Signs Height 6ft in 02/16/2025 Weight 206 lbs 02/16/2025 BMI 27.94 kg/m2 02/16/2025 Blood pressure systolic 120 mm Hg 02/17/20 25 Blood pressure diastolic 70 mm Hg 025 Encounters Encounter Location Date Provider Diagnosis [facility] [address] [place] [address] 02/16/2025 Keya Cruz Pain in right toe(s) M79.674 ; Onychomycosis B35.1 ; Pain in left toe(s) M79.675 and Skin ulcer of toe of right foot, limited to breakdown of skin L97.511 Assessments Encounter Date Diagnosis (ICD Code) Assessment Notes Treatment Notes Treatment Clinical Notes Section Notes 02/16/2025 Pain in right toe(s) (ICD-10 - M79.674) 02/16/2025 Onychomycosis (ICD-10 - B35.1) 02/16/2025 Pain in left toe(s) (ICD-10 - M79.675) 02/16/2025 Skin ulcer of toe of right foot, limited to breakdown of skin (ICD-10 - L97.511) Patient Educated with: WOUND CARE INSTRUCTIONS.p df (WOUND CARE INSTRUCTIONS.p df) Plan Of Treatment Treatment Notes Assessment Notes Skin ulcer of toe of right f oot, limited to breakdown of skin Patient Educated with: WOUND CARE INSTRUCTIONS.pdf (WOUND CARE INSTRUCTIONS.pdf) Next Appt Details Follow Up: 3 Months, Reason: Provider Name:Keya vallejo, 05/18/2025 04:00:00 PM, [address] [place] [address], [address], Procedure Notes * Category Sub-Category Detail Notes Debride Nail 6-10 Nail debridement Due to the cl inical pathology outlined in the exam findings, performance of this nail treatment is medically necessary as its management by an unskilled/untrained nonprofessional would put this patients foot and overall health at risk. Therefore, debridement to affected nail(s), as described in exam ( TA, T1, T2, T3, T4, T5, T6, T8, T9, ), was performed exclusively by the physician of record to reduce/remove overall nail length, girth, thickness, subungual debris, and necrotic tissue, by manual and/or electrical means through the use of a nail nipper and/or dremel-type grinder set up operator external, to a more viable healthy nail plate [...] to maintain effectiveness in symptomatic relief - 19859 Progress Notes * Billy FAYDOB:[birth year] (69 yo M)Acc No.[id number]:02/16/2025 Progress Note Patient:?Billy FAY Provider:?Keya Cruz DPM :1955???Age:69 Y???Sex:Male Westley e:02/16/2025 Address:[address] [place] [address] pt , [place] [facility] Pcp:Ashlee Schilling MD Subjective: * Chief Complaints: * ???Painful nail(s) aggravate d by shoes causing difficulty standing/walkingOpen sore - Toe * HPI: ???Painful Nails:?Pt States Last PCP Visit:?Date:?01/06/2025 ???Skin problems:?Nature:?Open sore.?Course:?resolved.?Treatments:?Topical abx, soaks.? * ROS:?General/Constitutional:?Nausea?denies.?Vomiting?denies.?Hunger Thirst?denies.?Loss appetite?denies.?Chills?denies.?Fatigue?denies.?Fever?denies.?Night Sweats?denies.?Unexplained weight loss?denies.?Unexplained [...] cyst s 1996 * Hospitalization/Major Diagno stic Procedure:?[facility]- dehydration , fluids 11/2024 * Family History:?Mother: dece ased, [place].?Father: .? * Social History:?Tobacco Use:?Tobacco use other than smoking?Are you an other tobacco user??No ?Tobacco Control (Standard)?Tobacco use:?Nonsmoker ?Additional Findings: Tobacco non-user?Current nonsmoker ???Miscellaneous:?Caffeine: yes, frequency:, 2-3 cups per day. ?Children: yes. ?Exercise: no. ?Marital status: single. ?Occupation: Retired. * Medications:?TakingAmoxicill in 125 MG Tablet Chewable as directed Orally Atorvastatin Calcium 20 MG Tablet TAKE 1 TABLET BY MOUTH EVERY DAY Oral Biktarvy 50-200-25 MG Tablet Oral Aspirin 81 MG Tablet Chewable 1 tablet Orally Once a day Losartan Potassium 50 MG Tablet Oral Chlorthalidone 25 MG Tablet Oral amLODIPine Besylate 5 MG Tablet Oral Medication List reviewed and reconciled with the patientTaking Amoxicillin 125 MG Tablet Chewable as directed Orally Taking Atorvastatin Calcium 20 MG Tablet TAKE 1 TABLET BY MOUTH EVERY DAY Oral Taking Biktarvy 50-200-25 MG Tablet Oral Taking Aspirin 81 MG Tablet Chewable 1 tablet Orally Once a day Taking Losartan Potassium 50 MG Tablet Oral Taking Chlorthalidone 25 MG Tablet Oral Taking amLODIPine Besylate 5 MG Tablet Oral Medication List reviewed and reconciled with the patient * Allergies:?N.K.D.A.yes[Aller gies Verified] Objective: * Vitals:?Ht: 6ft, Wt:206, BMI :27.94, Shoe size: 10.5, BP:120/70mm Hg, Ht-cm: 182.88 cm, Wt-k.44 kg. * Examination: ???Nails: ?NAILS are:?Elongated, overgrown, dystrophic, lytic, greater than 3mm thick, discolored and friable with crumbly malodorous subungual debris, with pain on palpation, TA, T1, T2, T3, T4, T5, T6, T8, T9.?Dermatologic: ?ULCER:? LOCATION, Dorsal,T7, resolved.? Assessment: * Assessment: 1.?Pain in right toe(s) - M7 9.674???2.?Onychomycosis - B35.1 (Primary)???3.?Pain in left toe(s) - M79.675???4.?Skin ulcer of toe of right foot, limited to breakdown of skin - L97.511???Specify :Resolved??? Plan: * Treatment: * Procedures:?Debride Nail 6-10:?Nail debridement?Due to the clinical pathology outlined in the exam findings, performance of this nail treatment is medically necessary as its management by an unskilled/untrained nonprofessional would put this patients foot and overall health at risk. Therefore, debridement to affected nail(s), as described in exam ( TA, T1, T2, T3, T4, T5, T6, T8, T9, ), was performed exclusively by the physician of record to reduce/remove overall nail length, girth, thickness, subungual debris, and necrotic tissue, by manual and/or electrical means through the use of a nail nipper and/or dremel-type grinder set up operator external, to a more viable healthy nail plate [...] to maintain effectiveness in symptomatic relief - 32807.? * Procedure Codes:?05437 WINGI ERUM NAIL, 6 OR MORE * Follow Up:?3 Months * Images: * Sign off status: Completed true * Provider:?Keya Cruz, SANDRA Date:? Generated for Ernesto soriano/Vivien/Sydney on:?02/24/2025 02:32 PM EDT History and Physical Notes * HPI (History of Present Illness) Category Sub-Category Detail Notes Category Not es Painful Nails Pt States Last PCP Visit: Date:: 01/06/2025 Skin problems Nature: Open sore Course: resolved Treatments: Topical abx, soaks Examination Category Sub-Category Detail Notes Category Not es Dermatologic ULCER: LOCATION, Dorsal,T7, resolve d Nails NAILS are: Elongated, overg rown, dystrophic, lytic, greater than 3mm thick, discolored and friable with crumbly malodorous subungual debris, with pain on palpation, TA, T1, T2, T3, T4, T5, T6, T8, T9
--- OUTSIDE RECORDS SUMMARY | 2025-02-24 14:32 | XMS_ITS ---
Author Organization [facility] Address [address] [facility] [place] [address] Care Team Providers Care Underground Conduit Installer Name Role Phone Ashlee Schilling MD Primary Care Provider Marni Keya Purcell Unavailable [phone] Noah De La Rosa Unavailable [phone] Allergies No Known Allergies REASON FOR VISIT Open sore - Toe Medications Medication SIG (Take, Route, Frequency, Duration) Notes Start Date End Date Status Atorvastatin Calcium 20 MG TAKE 1 TABLET BY MOUTH EVERY DAY Oral for 30 Days Active Amoxicillin 125 MG as directed Orally Active Losartan Potassium 50 MG Oral for 30 Days Active Chlorthalidone 25 MG Oral for 90 Days Active amLODIPine Besylate 5 MG Oral for 90 Days Active Biktarvy [...] Interpretation Negative Vital Signs Height 6ft in 02/09/2025 Weight 210 lbs 02/09/2025 BMI 28.48 kg/m2 02/09/2025 Blood pressure systolic 120 mm Hg 02/10/20 25 Blood pressure diastolic 70 mm Hg 025 Procedures Procedure Date Ordered Date Performed Result Body Sit e 78274- Debride <25 sq cm 02/09/2025 N/A Encounters Encounter Location Date Provider Diagnosis [facility] [address] [address] 02/09/2025 Noah Saldanaunier Skin ulcer of toe of right foot, limited to breakdown of skin L97.511 Assessments Encounter Date Diagnosis (ICD Code) Assessment Notes Treatment Notes Treatment Clinical Notes Section Notes 02/09/2025 Skin ulcer of toe of right foot, limited to breakdown of skin (ICD-10 - L97.511) Patient Educated with: WOUND CARE INSTRUCTIONS.p df (WOUND CARE INSTRUCTIONS.p df) 02/09/2025 Other Plan Of Treatment Treatment Notes Assessment Notes Skin ulcer of toe of right f oot, limited to breakdown of skin Patient Educated with: WOUND CARE INSTRUCTIONS.pdf (WOUND CARE INSTRUCTIONS.pdf) Pending Test Test Name Order Date 84863- Debride <25 sq cm 02/09/2025 Next Appt Details Follow Up: prn, Reason: Provider Name:Keya vallejo, 05/18/2025 04:00:00 PM, [address] [place] [address], [id number], Procedure Notes * Category Sub-Category Detail Notes Debride skin< 25 sq cm Open wound Physician of record performed open wound selective debridement of first 25 sq cm or less, of devitilized necrotic/nonviable soft tissue, fibrin, and exudate extending from the epidermis through the dermis, utilizing sharp dissection with sterile 15 blade, and/or tissue nippers. Sterile antibiotic dressing applied, ANESTHESIA- was accomplished TOPICALLY with Lidocaine Hydrochloride Jelly 2 percent. Hemostasis was achieved through direct pressure. Post debridement measurements: 5mm x 5mm x 2mm. Character of the wound post debridement is stable (16102) Progress Notes * Billy FAYDOB:[birth year] (69 yo M)Acc No.[id number]:02/09/2025 Progress Notes Patient:?Billy FAY Provider:?Noah De La Rosa DPM :1955???Age:69 Y???Sex:Male Westley e:02/09/2025 Address:[address] [place], [place] [address]Gene pt, [id number] Pcp:Ashlee Schilling MD Subjective: * Chief Complaints: * ???Open sore - Toe * HPI: ???Skin problems:?Nature:?Open sore.?Treatments:?Topical abx, soaks.? * ROS:?General/Constitutional:?Nausea?denies.?Vomiting?denies.?Hunger Thirst?denies.?Loss appetite?denies.?Chills?denies.?Fatigue?denies.?Fever?denies.?Night Sweats?denies.?Unexplained [...] * Vitals:?Ht:6ft, Wt:210, BMI: 28.48, Shoe size:10.5, BP:120/70mm Hg, Ht-cm: 182.88 cm, Wt-k.26 kg. * Examination: ???Dermatologic: ?ULCER:? LOCATION, Dorsal,T7, SIZE, 4mm X 4mm X 1-2mm, BASE, granular to epithelialized, RIM, hyperkeratotic, UNDERMINING, absent, TRACKING, Partial to, Full thickness breakdown of skin, DRAINAGE, serosanguineous, mild, NECROTIC TISSUE, loosely-adherent, yellow slough, MALODOR, absent, CALOR, absent, ERYTHEMA, absent, PAIN ON PALPATION, mild.? Assessment: * Assessment: 1.?Skin ulcer of toe of righ t foot, limited to breakdown of skin - L97.511 (Primary)??? Plan: * Treatment: * Procedures:?Debride skin< 25 sq cm:?Open wound?Physician of record performed open wound selective debridement of first 25 sq cm or less, of devitilized necrotic/nonviable soft tissue, fibrin, and exudate extending from the epidermis through the dermis, utilizing sharp dissection with sterile 15 blade, and/or tissue nippers. Sterile antibiotic dressing applied, ANESTHESIA- was accomplished TOPICALLY with Lidocaine Hydrochloride Jelly 2 percent. Hemostasis was achieved through direct pressure. Post debridement measurements: 5mm x 5mm x 2mm. Character of the wound post debridement is stable (38931).? * Procedure Codes:?11960 ACTIV E WOUND CARE/20 CM OR < * Preventive Medicine:? ??Counseling:?Ulcer:?A detailed plan of care was reviewed with the patient. We emphasized the fact that the patient takes on an active participating role in the treatment process and emphasized to them that they are an included, valued, and important member of the wound healing team in order to reach an expedient successful outcome. The patient agreed to follow their medically recommended diet while increasing their protein intake if safely able to do so, maintain proper bodily hydaration, abide by weight-bearing restrictions at all times, quit all current smoking habits if any, and diligently follow any/all dressing change instructions. It was clearly made known to the patient that if they fail to do their part, they will likely extend their course of treatment as well as possibly increase their risk of adverse events including amputation. The patient was instructed on importance of proper wound care consisting of pressure reduction, and proper maintainance of a moist wound environment. The patient is to cleanse the wound with warm soapy water/peroxide/saline, or betadine BID based on product availability. The patient is to apply ( Neosporin, Polysporin, or Triple, ) Antibiotic to the wound and cover with a DSD as directed. The patient was instructed to change dressings according to orders, or PRN saturation, leaks. The patient was instructed to monitor and report any signs or symptoms of infection or any untoward reactions. Precautions Taken: Offloading/Pressure reduction via rest/ limited activity to essential to daily life only, shoe modification, accommodative padding, sharp debridement, and take/apply medication as directed. THE GOALS of wound debridement to remove devitilized tissue, decrease risk for infection, promote wound healing and prevent further complication were discussed/reviewed. Debridement frequency as indicated, Given recent successful results to treatment, The patient is to cont the local wound care as directed till completely healed.? * Follow Up:?prn * Images: * Sign off status: Completed true * Provider:Farhat De La Rosa DPM Date:?2024 Generated for Ernesto soriano/Viiven/Sydney on:?02/24/2025 02:31 PM EDT History and Physical Notes * HPI (History of Present Illness) Category Sub-Category Detail Notes Category Not es Skin problems Nature: Open sore Treatments: Topical abx, soaks Examination Category Sub-Category Detail Notes Category Not es Dermatologic ULCER: LOCATION, Dorsal ,T7, SIZE, 4mm X 4mm X 1-2mm, BASE, granular to epithelialized, RIM, hyperkeratotic, UNDERMINING, absent, TRACKING, Partial to, Full thickness breakdown of skin, DRAINAGE, serosanguineous, mild, NECROTIC TISSUE, loosely-adherent, yellow slough, MALODOR, absent, CALOR, absent, ERYTHEMA, absent, PAIN ON PALPATION, mild
--- OUTSIDE RECORDS SUMMARY | 2025-02-24 14:32 | XMS_ITS | Patient Health Record ---
Author Organization [facility] Address [address] [facility] [place] [address] Care Team Providers Care Instructional Support Assistant Name Role Phone Ashlee Schilling MD Primary Care Provider Marni Keya Purcell Unavailable [phone] Noah De La Rosa Unavailable [phone] Allergies No Known Allergies Reason For Referral No Information Medications Medication SIG (Take, Route, Frequency, Duration) Notes Start Date End Date Status amLODIPine Besylate 5 MG Oral for 90 Days Active Losartan Potassium 50 MG Oral for 30 Days Active Chlorthalidone 25 MG Oral for 90 Days Active Biktarvy 50-200-25 MG Oral for 30 Days Active Aspirin 81 MG 1 tablet Orally Once a day for 90 days Active Amoxicillin 125 MG as directed Orally [...] W/U Status Risk Notes Problem Plantar fibromatosis (78360595) 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 Problem Ulcer of toe of right foot (disorder) (074384172694880 ) Skin ulcer of toe of right foot, limited to breakdown of skin (L97.511) Active confirmed Vital Signs Heart Rate 66 /min 11/24/2024 Blood pressure diastolic 70 mm Hg 02/16/2025 Height 6ft in 02/16/2025 Blood pressure systolic 120 mm Hg 02/16/2025 Weight 206 lbs 02/16/2025 BMI 27.94 kg/m2 02/16/2025 Procedures Procedure Date Ordered Date Performed Result Body Sit e 82195- I&D ABSCESS-COMPLICATED,MULTI 01/05/2025 N/A 26877- Debride <25 sq cm 02/09/2025 N/A Encounters Encounter Location Date Provider Diagnosis [address] [address] 08/25/2024 [place] Plantar fibromatosis M72.2 ; Posterior tibial tendinitis, left leg M76.822 ; Onychomycosis B35.1 ; Pain in right toe(s) M79.674 ; Pain in left toe(s) M79.675 ; 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 and Posterior tibial tendinitis, right leg M76.[address] [address] 11/24/2024 [place] Posterior tibial tendinitis, left leg M76.822 ; Xerosis of skin L85.3 ; Onychomycosis B35.1 ; Pain in right toe(s) M79.674 ; Pain in left toe(s) M79.675 and Posterior tibial tendinitis, right leg M76.[address] [address] 01/05/2025 Noah Estrella Abscess of toe of right foot L02.[address] [address] 02/09/2025 Noah Estrella Skin ulcer of toe of right foot, limited to breakdown of skin L97.[address] [address] 02/16/2025 [place] Pain in right toe(s) M79.674 ; Onychomycosis B35.1 ; Pain in left toe(s) M79.675 and Skin ulcer of toe of right foot, limited to breakdown of skin L97.511 [facility] [place] [address] [place] [address] 08/25/2024 [place]a Izaiaha [facility] [address] [address] 11/24/2024 [place] [facility] [address] 01/04/2025 [facility] [address] 02/01/2025 Keya Cruz Assessments Encounter Date Diagnosis (ICD Code) Assessment Notes Treatment Notes Treatment Clinical Notes Section Notes 08/25/2024 Posterior tibial tendinitis, left leg (ICD-10 - M76.822) 08/25/2024 Plantar fibromatosis (ICD-10 - M72.2) 11/24/2024 Xerosis of skin (ICD-10 - L85.3) 11/24/2024 Posterior tibial tendinitis, left leg (ICD-10 - M76.822) 02/16/2025 Pain in right toe(s) (ICD-10 - M79.674) 02/16/2025 Onychomycosis (ICD-10 - B35.1) 11/24/2024 Onychomycosis (ICD-10 - B35.1) 01/05/2025 Abscess of toe of right foot (ICD-10 - L02.611) Patient Educated with: WOUND CARE INSTRUCTIONS.p df (WOUND CARE INSTRUCTIONS.p df) 02/09/2025 Skin ulcer of toe of right foot, limited to breakdown of skin (ICD-10 - L97.511) Patient Educated with: WOUND CARE INSTRUCTIONS.p df (WOUND CARE INSTRUCTIONS.p df) 02/16/2025 Pain in left toe(s) (ICD-10 - M79.675) 08/25/2024 Onychomycosis (ICD-10 - B35.1) 08/25/2024 Pain in right toe(s) (ICD-10 - M79.674) 02/16/2025 Skin ulcer of toe of right foot, limited to breakdown of skin (ICD-10 - L97.511) Patient Educated with: WOUND CARE INSTRUCTIONS.p df (WOUND CARE INSTRUCTIONS.p df) 11/24/2024 Pain in right toe(s) (ICD-10 - M79.674) 11/24/2024 Pain in left toe(s) (ICD-10 - M79.675) 08/25/2024 Pain in left toe(s) (ICD-10 - M79.675) 08/25/2024 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.22) 11/24/2024 Posterior tibial tendinitis, right leg (ICD-10 - M76.821) 08/25/2024 Posterior tibial tendinitis, right leg (ICD-10 - M76.821) 01/05/2025 Other 02/09/2025 Other Plan Of Treatment Pending Test Test Name Order Date 41885- Debride <25 sq cm 02/09/2025 48781- I&D ABSCESS-COMPLICATED,MULTI 08/2025 Next Appt Details Provider Name:Keya vallejo, 05/18/2025 04:00:00 PM, [address] [place], [address], Insurance Providers Payer Name Payer Address Payer Phone Subscriber Number Group Number Insured Name Patient Relationship to Insured Coverage Start Date Coverage End Date Medicare National [employer] [address] [place] [address] [id number] Billy Elaine Self - patient is the insured Medical (General) History Medical History History ICD Code Back,Hip,and Knee pain CAD (Cholesterol) High blood pressure Sciatica Measles HIV Surgical History Surgery Date(Month/Year) hand- cysts 1996 Hospitalization History Reason Date(Month/Year) [facility]- dehydration , fluids 11/2024
== END 2025-02-24 13:14 | disposition home or self-care (01) ==
LOC: HO.MAMMO 13:13
PROVIDERS: PCP Family Medicine; Visit Provider Internal Medicine
DX: Z13.820 Encounter for screening for osteoporosis (principal); Q79.9 Congenital malformation of musculoskeletal system, unspecified
CPT/HCPCS: 77080

== ENCOUNTER → 2025-02-24 13:30 | Outpatient (BNV) | payer MEDICARE, MEDICAID, SELFPAY | PROVIDERS: PCP Family Medicine; Visit Provider Radiology Diagnostic Radiology | DX: Q79.9 Congenital malformation of musculoskeletal system, unspecified (principal) | CPT/HCPCS: 77080 ==

== ENCOUNTER 2025-05-03 09:22 | Outpatient (REF) | payer MEDICARE, MEDICAID, SELFPAY ==
--- NOTE | ~2025-05-03 | FL_ITS ---
EXAMINATION: XR BARIUM SWALLOW CLINICAL INFORMATION: Dysphagia COMPARISON: None available. TECHNIQUE: Routine upright barium swallow with thick barium and barium coated saltine crackers and thin barium in prone lying position was performed. FINDINGS: Following oral administration of thick barium in upright view there is initial hesitation with swallowing. On subsequent swallowing there is normal propagation of bolus from the oral cavity through the pharynx, esophagus into stomach without any evidence of obstruction, narrowing or stricture. No laryngeal penetration and aspiration seen. On oral administration of barium coated saltine crackers there is normal oral mastication and propagation of bolus from oral cavity, pharynx, esophagus into stomach with transitional holdup of solid food in the mid esophagus which clears with thin barium. On placing patient supine and prone lying no gastroesophageal reflux or hiatal hernia seen. FLUOROSCOPY TIME: 2 minute 35 seconds DOSE AREA PRODUCT: 2361 uGy-m2 (microgray-meter squared) FL/FL barium swallow IMPRESSION: Unremarkable barium swallow exam.. Electronically signed by: Ammon So MD 05/03/2025 02:20 PM EDT
--- OUTSIDE RECORDS SUMMARY | 2025-05-03 09:52 | XMS_ITS | Patient Health Record ---
Author Organization [facility] Address [address] [facility] [place] [address] Care Team Providers Care Health Clinician Name Role Phone Ashlee Schilling MD Primary Care Provider Keya Vargas Unavailable [phone] Noah De La Rosa Unavailable [phone] Allergies No Known Allergies Reason For Referral No Information Medications Medication SIG (Take, Route, Frequency, Duration) Notes Start Date End Date Status amLODIPine Besylate 5 MG Oral; Duration: 90 Days Active Losartan Potassium 50 MG Oral; Duration: 30 Days Active Chlorthalidone 25 MG Oral; Duration: 90 Days Active Biktarvy 50-200-25 MG Oral; Duration: 30 Days Active Aspirin 81 MG 1 tablet Orally Once a day; Duration: 90 days Active Amoxicillin 125 MG as directed Orally Active Atorvastatin Calcium 20 MG TAKE 1 TABLET BY MOUTH EVERY DAY Oral; Duration: 30 Days Active Social History Tobacco Use: [...] W/U Status Risk Notes Problem Plantar fibromatosis (68663345) 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 Problem Ulcer of toe of right foot (disorder) (208488937456828 01) Skin ulcer of toe of right foot, limited to breakdown of skin (L97.511) Active confirmed Vital Signs Heart Rate 66 /min 11/24/2024 Blood pressure diastolic 70 mm Hg 02/16/2025 Height 6ft in 02/16/2025 Blood pressure systolic 120 mm Hg 02/16/2025 Weight 206 lbs 02/16/2025 BMI 27.94 kg/m2 02/16/2025 Procedures Procedure Date Ordered Date Performed Result Body Sit e 08184- I&D ABSCESS-COMPLICATED,MULTI 01/05/2025 N/A 38492- Debride <25 sq cm 02/09/2025 N/A Encounters Encounter Location Date Provider Diagnosis [address] [address] 08/25/2024 [place] Plantar fibromatosis M72.2 ; Posterior tibial tendinitis, left leg M76.822 ; Onychomycosis B35.1 ; Pain in right toe(s) M79.674 ; Pain in left toe(s) M79.675 ; 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 and Posterior tibial tendinitis, right leg M76.[address] [address] 11/24/2024 [place] Posterior tibial tendinitis, left leg M76.822 ; Xerosis of skin L85.3 ; Onychomycosis B35.1 ; Pain in right toe(s) M79.674 ; Pain in left toe(s) M79.675 and Posterior tibial tendinitis, right leg M76.[address] [address] 01/05/2025 Noah Estrella Abscess of toe of right foot L02.[address] [address] 02/09/2025 Noah Estrella Skin ulcer of toe of right foot, limited to breakdown of skin L97.[address] [address] 02/16/2025 [place] Pain in right toe(s) M79.674 ; Onychomycosis B35.1 ; Pain in left toe(s) M79.675 and Skin ulcer of toe of right foot, limited to breakdown of skin L97.511 [facility] [address] [address] 08/25/2024 [facility]a Blissyoni [facility] [address] [address] 11/24/2024 [facility] [address] [address] 01/04/2025 [facility] [facility] [address] 02/01/2025 [place] Assessments Encounter Date Diagnosis [...] Treatment Pending Test Test Name Order Date 77528- Debride <25 sq cm 02/09/2025 91489- I&D ABSCESS-COMPLICATED,MULTI 08/2025 Next Appt Details Provider Name:Keya vallejo, 05/18/2025 12:45:00 PM, [address] [facility], [place], [address], Insurance Providers Payer Name Payer Address Payer Phone Subscriber Number Group Number Insured Name Patient Relationship to Insured Coverage Start Date Coverage End Date Medicare National Govt Sv[employer] [address] [place] [address] [id number] Billy Elaine Self - patient is the insured Medical (General) History Medical History History ICD Code Back,Hip,and Knee pain CAD (Cholesterol) High blood pressure Sciatica Measles HIV Surgical History Surgery Date(Month/Year) hand- cysts 1996 Hospitalization History Reason Date(Month/Year) [facility]- dehydration , fluids 11/2024
== END 2025-05-03 09:23 | disposition home or self-care (01) ==
LOC: HO.XRAY 09:22
PROVIDERS: PCP Family Medicine; Visit Provider Nurse Practitioner Family
DX: R13.10 Dysphagia, unspecified (principal)
CPT/HCPCS: 74220

== ENCOUNTER → 2025-05-03 09:24 | Outpatient (BNV) | payer MEDICARE, MEDICAID, SELFPAY | PROVIDERS: PCP Family Medicine; Visit Provider Radiology Diagnostic Radiology | DX: R06.00 Dyspnea, unspecified (principal) | CPT/HCPCS: 74220 ==

== ENCOUNTER 2025-07-26 15:12 | Outpatient (REF) | payer MEDICARE, MEDICAID, SELFPAY ==
[2025-07-26 16:10] LABS: MANUAL DIFF FLAG NO
[2025-07-26 16:25] LABS: Hematocrit 40.7 % (42.0-52.0); Hemoglobin 14.1 g/dl (14.0-18.0); Imm Gran Abs Auto 0.01 X10*3/uL (0.00-0.03); Imm Gran Pct Auto 0.2 % (0.0-0.4); Lymphocytes Absolute Auto 2.8 X10*3/uL (1.2-4.9); Mean Corpuscular HGB Conc 34.6 g/dl (31.0-36.0); Mean Corpuscular Hemoglobin 31.5 pg (27.0-33.0); Mean Corpuscular Volume 90.8 fL (80.0-98.0); NRBC Abs Auto 0.000 X10*3/uL (0.0-0.012); NRBC Pct Auto 0.0 /100WBC (0.0-0.2); Platelet Count 212 X10*3/uL (160-400); Red Blood Count 4.48 X10*6/uL (4.60-5.80); White Blood Count 5.7 X10*3/uL (4.8-10.8)
[2025-07-26 18:06] LABS: Alanine Aminotransferase 30 U/L (0-40); Albumin Level 4.6 g/dL (3.5-5.0); Alkaline Phosphatase 91 U/L (39-117); Anion Gap 11 (12-20); Aspartate Amino Transferase 29 U/L (5-37); Blood Urea Nitrogen 15 mg/dL (9-16); Calcium 9.1 mg/dL (8.4-10.2); Carbon Dioxide 28 mmol/L (22-29); Chloride 109 mmol/L (96-108); Estimated Glomerular Filt Rate > 60; Potassium 3.8 mmol/L (3.3-5.1); Sodium 144 mmol/L (135-145); Total Protein 7.7 g/dL (6.5-8.0)
[2025-07-27 05:12] LABS: Syphilis Screen Nonreactive (Nonreactive)
[2025-07-27 14:28] LABS: HIV RNA PCR Qn Copies 115 copies/mL (NOT DETECTED); HIV RNA PCR Qn Log Copies 2.06 (NOT DETECTED)
[2025-07-28 20:43] LABS: TS Negative Control Passed; TS Panel A 1; TS Panel B 0; TS Positive Control Passed; TSpotTB Negative (Negative)
[2025-07-31 00:03] LABS: Absolute CD3 Count 2285 cells/uL (840-3060); Absolute CD8 Count 1453 cells/uL (180-1170); Percent CD3 Cells 78 % (57-85); Percent CD8 Cells 50 % (12-42)
== END 2025-07-26 15:13 | disposition home or self-care (01) ==
LOC: HO.HHCL 15:12
PROVIDERS: PCP Family Medicine; Visit Provider Internal Medicine
DX: Z11.1 Encounter for screening for respiratory tuberculosis (principal); Z21 Asymptomatic human immunodeficiency virus [HIV] infection status
CPT/HCPCS: 36415; 80053; 85025; 86359; 86360; 86481; 86780; 87536